=== PATIENT | female | born 1940 | race Caucasian/White ===

== ENCOUNTER 2019-01-12 13:37 | Emergency (ER) | payer MEDICARE, MEDICAID ==
[2019-01-12] MEDS ORDERED: Sodium Chloride 0.9% 10 ML Syringe FLUSH PRN (13:59)
[2019-01-12] MEDS ORDERED: Albuterol 0.083% 2.5 MG/3 ML Neb Soln NEB ONE (14:00)
[2019-01-12] MEDS ORDERED: methylPREDNISolone Sodium Succinate 125 MG/2 ML SDV IVPUSH ONE (14:00)
--- NOTE | 2019-01-12 14:04 | EDM.PDOC ---
ED HPI GENERAL MEDICAL PROBLEM - General Chief Complaint: Respiratory Problem Stated Complaint: ASTHMA ATTACK Time Seen by Provider: 01/12/19 13:52 Source of Information: Reports: Patient, RN Notes Reviewed History Limitations: Reports: No Limitations - History of Present Illness INITIAL COMMENTS - FREE TEXT/NARRATIVE: Patient is a 78-year-old female who presents to the ED for a possible asthma attack. She states that she developed sudden onset shortness of breath, with chest pressure around 30-45 minutes ago. She states that when she gets asthma attacks of this, her ears hurt, and she states that her ears to her at this time. She is complaining shortness of breath at rest, but it is definitely worse with activities. The patient states she was at the clinic all morning, for appointments, with Dr. Bauer, and she states that she had an appointment with Dr. Hein yesterday, and she was retaining water, and they started her on a water pill, she cannot recall the name but thought it was furosemide. She states that she did have a 5 pound weight gain prior to this. Patient notes a history of asthma, but she has not had PFTs for evaluation of these in a while. She denies any further cardiac history, she denies any nausea/vomiting/ diarrhea, fever/chills. She did try to take her Advair, and her albuterol inhaler, but this did not seem to help much. Patient did not take any medications for the chest pain. Middle Chest Pain Score (Numeric/FACES): 6 - Related Data Allergies Allergy/AdvReac Type Severity Reaction Status Date / Time Unable to Assess Allergy Unverified 01/12/19 13:47 Home Meds: Home Meds Albuterol [Ventolin HFA] 1 inh INH Q4HR PRN 01/12/19 [History] Aspirin 81 mg PO DAILY 01/12/19 [History] predniSONE 20 mg PO ASDIRECTED #15 tab 01/12/19 [Rx] Past Medical History HEENT History: Reports: Cataract, Impaired Vision Other HEENT History: wears glasses Cardiovascular History: Reports: Heart Failure, High Cholesterol, Hypertension Respiratory History: Reports: Asthma, Sleep Apnea Gastrointestinal History: Reports: GERD Genitourinary History: Reports: Renal Disease Other Genitourinary History: renal failure 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: Neurological History: Reports: None Psychiatric History: Reports: None Endocrine/Metabolic History: Reports: Hypothyroidism, Obesity/BMI 30+ Hematologic History: Reports: None Immunologic History: Reports: None Oncologic (Cancer) History: Reports: None Dermatologic History: Reports: None - Infectious Disease History Infectious Disease History: Reports: None - Past Surgical History Head Surgeries/Procedures: Reports: None HEENT Surgical History: Reports: Tonsillectomy Musculoskeletal Surgical History: Reports: Knee Replacement, Shoulder Surgery Social & Family History - Tobacco Use Smoking Status *Q: Never Smoker - Caffeine Use Caffeine Use: Reports: Soda - Recreational Drug Use Recreational Drug Use: No ED ROS GENERAL - Review of Systems Review Of Systems: See Below Constitutional: Denies: Fever, Chills HEENT: Reports: No Symptoms Respiratory: Reports: Shortness of Breath. Denies: Wheezing Cardiovascular: Reports: Chest Pain (chest discomfort), Edema ("retaining water on legs"). Denies: Orthopnea Endocrine: Reports: No Symptoms GI/Abdominal: Denies: Abdominal Pain, Constipation, Diarrhea, Nausea, Vomiting : Reports: No Symptoms Musculoskeletal: Reports: No Symptoms Skin: Reports: No Symptoms Neurological: Reports: No Symptoms Psychiatric: Reports: No Symptoms Hematologic/Lymphatic: Reports: No Symptoms Immunologic: Reports: No Symptoms ED EXAM, GENERAL - Physical Exam Exam: See Below Exam Limited By: No Limitations General Appearance: Alert, WD/WN, Mild Distress (very mild resp discomfort, pt is breathing heavier than normal) Eye Exam: Bilateral Eye: Normal Inspection Ears: Normal External Exam, Normal Canal, Hearing Grossly Normal, Normal TMs Throat/Mouth: Normal Inspection, Normal Lips, Normal Teeth, Normal Gums, Normal Oropharynx, Normal Voice, No Airway Compromise Head: Atraumatic Neck: Normal Inspection Respiratory/Chest: No Respiratory Distress, Lungs Clear, Normal Breath Sounds, No Accessory Muscle Use, Chest Non-Tender Cardiovascular: Normal Peripheral Pulses, Regular Rate, Rhythm, No Murmur Peripheral Pulses: 3+: Radial (L), Radial (R) GI/Abdominal: Normal Bowel Sounds, Soft, Non-Tender, No Distention, No Mass Extremities: Normal Inspection, Normal Capillary Refill Neurological: Alert, Oriented, Normal Cognition, No Motor/Sensory Deficits Psychiatric: Normal Affect, Normal Mood, Anxious (mildly, d/t difficulty breathing) Skin Exam: Warm, Dry, Intact, Normal Color, No Rash EKG INTERPRETATION EKG Date: 01/12/19 Time: 13:46 Rhythm: NSR (Sinus tach) Rate (Beats/Min): 102 [place]: Normal P-Wave: Present QRS: Normal ST-T: Normal QT: Normal Comparison: NA - No Prior EKG EKG Interpretation Comments: No acute ischemic changes, Dr. Rao appreciated some peaked T waves in V2, however patient's potassium is low at this time at 3.2. Course - Vital Signs Last Recorded V/S: Last Vital Signs Temp 96.5 F 01/12/19 13:43 Pulse 108 H 01/12/19 13:43 Resp 18 01/12/19 13:43 BP 135/79 01/12/19 13:43 Pulse Ox 97 01/12/19 14:01 - Orders/Labs/Meds Orders: Active Orders 24 hr Category Date Time Status EKG Documentation Completion [RC] STAT Care 01/12/19 14:00 Active Peripheral IV Care [RC] . DIRECTED Care 01/12/19 13:59 Active RT Aerosol Therapy [RC] ASDIRECTED Care 01/12/19 14:01 Active Sodium Chloride 0.9% [Saline Flush] Med 01/12/19 13:59 Active 10 ml FLUSH ASDIRECTED PRN Peripheral IV Insertion Adult [OM.PC] Stat Oth 01/12/19 13:59 Ordered Medication Orders Sodium Chloride (Saline Flush) 10 ml FLUSH ASDIRECTED PRN PRN Reason: Keep Vein Open Last Admin: 01/12/19 14:11 Dose: 10 ml Labs: Laboratory Tests 01/12/19 01/12/19 01/12/19 Range/Units 13:58 13:58 13:58 WBC 9.96 (3.98-10.04) K/mm3 RBC 4.12 (3.98-5.22) M/mm3 Hgb 11.8 (11.2-15.7) gm/dl Hct 36.5 (34.1-44.9) % MCV 88.6 D (79.4-94.8) fl MCH 28.6 (25.6-32.2) pg MCHC 32.3 (32.2-35.5) g/dl RDW Std Deviation 42.1 (36.4-46.3) fL Plt Count 360 (182-369) K/mm3 MPV 9.0 L (9.4-12.3) fl Neut % (Auto) 75.0 H (34.0-71.1) % Lymph % (Auto) 17.7 L (19.3-51.7) % [place] % (Auto) 7.1 (4.7-12.5) % Eos % (Auto) 0 L (0.7-5.8) Baso % (Auto) 0.1 (0.1-1.2) % Neut # (Auto) 7.47 H (1.56-6.13) K/mm3 Lymph # (Auto) 1.76 (1.18-3.74) K/mm3 [place] # (Auto) 0.71 H (0.24-0.36) K/mm3 Eos # (Auto) 0.00 L (0.04-0.36) K/mm3 Baso # (Auto) 0.01 (0.01-0.08) K/mm3 Sodium 142 (136-145) mEq/L Potassium 3.2 L (3.5-5.1) mEq/L Chloride 104 (98-107) mEq/L Carbon Dioxide 26 (21-32) mEq/L Anion Gap 15.2 H (5-15) BUN 32 H (7-18) mg/dL Creatinine 1.7 H (0.55-1.02) mg/dL Est Cr Clr Drug Dosing 25.94 mL/min Estimated GFR (MDRD) 29 (>60) mL/min BUN/Creatinine Ratio 18.8 H (14-18) Glucose 140 H (83-115) mg/dL Calcium 10.1 (8.5-10.1) mg/dL Total Bilirubin 0.4 (0.2-1.0) mg/dL AST 20 (15-37) U/L ALT 35 (14-59) U/L Alkaline Phosphatase 98 (46-116) U/L NT-Pro-B Natriuret Pep 588 H (0-450) pg/mL Total Protein 7.0 (6.4-8.2) g/dl Albumin 3.4 (3.4-5.0) g/dl Globulin 3.6 gm/dL Albumin/Globulin Ratio 0.9 L (1-2) Meds: Medications Generic Name Dose Route Start Last Admin Trade Name Freq PRN Reason Stop Dose Admin Sodium Chloride 10 ml 01/12/19 13:59 01/12/19 14:11 Saline Flush FLUSH 10 ml ASDIRECTED PRN Administration Keep Vein Open Discontinued Medications Generic Name Dose Route Start Last Admin Trade Name Jamie PRN Reason Stop Dose Admin Albuterol 2.5 mg 01/12/19 14:00 01/12/19 14:44 Proventil Neb Soln NEB 01/12/19 14:01 2.5 mg ONETIME ONE Administration Methylprednisolone Sodium Succinate 125 mg 01/12/19 14:00 01/12/19 14:18 Solu-Medrol IVPUSH 01/12/19 14:01 125 mg ONETIME ONE Administration Potassium Chloride 40 meq 01/12/19 15:40 Klor-Con M20 PO 01/12/19 15:41 ONETIME ONE - Re-Assessments/Exams Free Text/Narrative Re-Assessment/Exam: 01/12/19 14:06 Patient presents to the ED for evaluation of a possible asthma attack. Did order a chest x-ray, EKG, CBC, CMP, BNP, IV to be placed, 125 mg Solu-Medrol, and an albuterol them for initial management. 01/12/19 15:27 Patient's chest x-ray demonstrates hyperinflated lungs, a large hiatal hernia, but no other acute changes. Patient's white blood cell count is within normal limits, potassium was mildly low at 3.2, creatinine is elevated 1.7 GFR 29, BNP is also mildly elevated at 588. As stated in HPI, the patient states that she was started on furosemide yesterday, pharmacy records reveal that she was started on 20 mg of PO Furosemide daily for this. Departure - Departure Time of Disposition: 15:40 Disposition: Home, Self-Care 01 Condition: Fair Clinical Impression: Exacerbation of asthma Qualifiers: Asthma severity: mild Asthma persistence: unspecified Qualified Code(s): J45.901 - Unspecified asthma with (acute) exacerbation - Discharge Information *PRESCRIPTION DRUG MONITORING PROGRAM REVIEWED*: No *COPY OF PRESCRIPTION DRUG MONITORING REPORT IN PATIENT BARRY: No Prescriptions: predniSONE 20 mg PO ASDIRECTED #15 tab Instructions: Asthma, Adult, [id number], Pulmonary Function Tests Referrals: Izzy Hein MD [Primary Care Provider] - Forms: ED Department Discharge Additional Instructions: You were evaluated in the ER regarding your possible asthma attack. You were given a prescription for prednisone, please take as directed, this has been electronically prescribed to [facility] pharmacy located near [facility]. Please continue to use your albuterol inhaler as prescribed. You may use every 4 hours scheduled for the next few days if you're having increased breathing difficulty. Recommend that you follow up with your primary care provider, and that you talk to them about repeating nor PFTs at some point to re-evaluate your asthma. Please return to the ER at any time if your symptoms change or worsen. - My Orders Last 24 Hours: My Active Orders 01/12/19 13:59 Peripheral IV Care [RC] . DIRECTED Sodium Chloride 0.9% [Saline Flush] 10 ml FLUSH ASDIRECTED PRN Peripheral IV Insertion Adult [OM.PC] Stat 01/12/19 14:00 EKG Documentation Completion [RC] STAT 01/12/19 14:01 RT Aerosol Therapy [RC] ASDIRECTED - Assessment/Plan Last 24 Hours: My Active Orders 01/12/19 13:59 Peripheral IV Care [RC] . DIRECTED Sodium Chloride 0.9% [Saline Flush] 10 ml FLUSH ASDIRECTED PRN Peripheral IV Insertion Adult [OM.PC] Stat 01/12/19 14:00 EKG Documentation Completion [RC] STAT 01/12/19 14:01 RT Aerosol Therapy [RC] ASDIRECTED
--- NOTE | 2019-01-12 14:57 | CR ---
Chest: Two views of the chest were obtained. Comparison: No prior chest x-ray is available. Heart size is normal. Tortuous thoracic aorta is seen. Large hiatal hernia is present. Lungs are clear with no acute parenchymal change. Diaphragms are slightly flattened on the lateral view. Bony structures are osteopenic. Minimal scoliosis is noted. Impression: 1. Lungs are hyperinflated. 2. Large hiatal hernia. 3. Nothing acute is otherwise seen. Diagnostic code #2
[2019-01-12] MEDS ORDERED: Potassium Chloride 20 MEQ Tab.ER PO ONE (15:40)
== END 2019-01-12 16:08 | disposition home or self-care (01) ==
LOC: JD.ED 13:37
DX: J45.901 Unspecified asthma with (acute) exacerbation (principal); E66.9 Obesity, unspecified; I11.0 Hypertensive heart disease with heart failure; I50.9 Heart failure, unspecified; Z68.32 Body mass index [BMI] 32.0-32.9, adult; Z79.82 Long term (current) use of aspirin; Z79.52 Long term (current) use of systemic steroids
CPT/HCPCS: 36415; 71046; 80053; 83880; 85025; 93005; 94640; 96374; 99285; A9270; J2930; 93010; 99284

== ENCOUNTER 2019-01-31 22:02 | Emergency (ER) | payer MEDICARE, MEDICAID ==
--- NOTE | 2019-01-31 22:27 | EDM.PDOC ---
ED HPI GENERAL MEDICAL PROBLEM - General Chief Complaint: Chest Pain Stated Complaint: CHEST PAIN/SWEATING Time Seen by Provider: 01/31/19 22:11 Source of Information: Reports: Patient, Family (Daughter) History Limitations: Reports: No Limitations - History of Present Illness INITIAL COMMENTS - FREE TEXT/NARRATIVE: Ms. Mcneal is a pleasant 78-year-old woman with a past medical history negative. For possible asthma. She states that she has undergone pulmonary function tests in the past, but it was many years ago, and she does not recall what the results were. She is prescribed Advair, which she takes only on occasion, and albuterol by MDI. She has a space chamber at home, but does not use it. She now presents to the ED stating that she developed an asthma attack, midsternal chest pain, diaphoresis, and nausea around 20:30 this evening. She states that when she gets an asthma attack, she does not get dyspneic or wheezy , but, rather, her ears hurt. Such was the case [place]. She states that her central chest became heavy, and it hurt for her to breathe. She states that she felt a pressure in her central chest, that was painful, not a discomfort. It came on suddenly. It does not radiate, and she has not identified any modifiers. She states that she has been feeling anxious. She denies, specifically, shortness of breath. The patient states that she has had a similar constellation of symptoms 2 or 3 times over the past 5-6 months, but, for reasons unclear, she has not sought medical evaluation for them. It is unclear why tonight was any different. The patient states that she used her albuterol MDI, without a space chamber, 5 or 6 times, as well as 2 doses of Advair, prior to coming to the ED. She states that none of these treatments helped with her symptoms. The patient denies recent fever or chills, cough, dyspnea, palpitations, vomiting, constipation, diarrhea, abdominal pain, urinary symptoms, recent weight gain or weight loss, recent bloody bowel movements or black bowel movements, joint aches, headaches, or rashes. The patient's PCP is Dr. Izzy Hein. Her Dividend Deposit Entry Clerk is Dr. Primo Grant. Her Orthopedic Surgeon is Dr. Scottie Bauer. Her pain specialist is Dr. Nabil Chris. Mid-Sternal Chest Pain Score (Numeric/FACES): 5 - Related Data Allergies Allergy/AdvReac Type Severity Reaction Status Date / Time No Known Allergies Allergy Verified 01/31/19 22:04 Home Meds: Home Meds Albuterol [Ventolin HFA] 1 inh INH Q4HR PRN 01/12/19 [History] Aspirin 81 mg PO DAILY 01/12/19 [History] Escitalopram [Lexapro] 10 mg PO DAILY 01/31/19 [History] Ezetimibe 10 mg PO BEDTIME 01/31/19 [History] Fluticasone Propion/Salmeterol [Fluticasone-Salmeterol 100-50] 1 puff INH ASDIRECTED 01/31/19 [History] Furosemide 20 mg PO DAILY 01/31/19 [History] Levothyroxine 75 mcg PO ACBREAKFAST 01/31/19 [History] atorvaSTATin [Lipitor] 20 mg PO DAILY 01/31/19 [History] traZODone HCl [Trazodone HCl] 50 mg PO BEDTIME 01/31/19 [History] Past Medical History HEENT History: Reports: Impaired Vision Other HEENT History: wears glasses Cardiovascular History: Reports: High Cholesterol Respiratory History: Reports: Asthma (possible) Gastrointestinal History: Reports: GERD, Hiatal Hernia Genitourinary History: Reports: Chronic Renal Insuffiency 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: Psychiatric History: Reports: Anxiety, Depression Endocrine/Metabolic History: Reports: Hypothyroidism, Obesity/BMI 30+ - Past Surgical History HEENT Surgical History: Reports: Cataract Surgery (bilateral), Tonsillectomy Musculoskeletal Surgical History: Reports: Knee Replacement (bilateral), Shoulder Surgery (right, open) Social & Family History - Tobacco Use Smoking Status *Q: Never Smoker - Caffeine Use Caffeine Use: Reports: Soda - Alcohol Use Alcohol Use History: No - Recreational Drug Use Recreational Drug Use: No - Living Situation & Occupation Living situation: Reports: , with Family (Daughter) Occupation: Retired ED ROS GENERAL - Review of Systems Review Of Systems: Comprehensive ROS is negative, except as noted in HPI. ED EXAM, GENERAL - Physical Exam Exam: See Below Exam Limited By: No Limitations General Appearance: Alert, WD/WN, Anxious Eye Exam: Bilateral Eye: EOMI, Normal Inspection Ears: Normal External Exam, Hearing Grossly Normal Nose: Normal Inspection Throat/Mouth: Normal Inspection, Normal Lips, Normal Voice, No Airway Compromise Head: Atraumatic, Normocephalic Neck: Normal Inspection, Full Range of Motion Respiratory/Chest: No Respiratory Distress, Lungs Clear, Normal Breath Sounds, No Accessory Muscle Use, Other (There is tenderness to palpation of the patient' s chest, however, she states that it is not the same pain as that that brings her to the ED). No: Decreased Breath Sounds, Crackles, Rhonchi, Wheezing, Stridor, Prolonged Expiration Cardiovascular: Normal Peripheral Pulses, Regular Rate, Rhythm, No Edema, No Gallop, No JVD, No Murmur, No Rub Peripheral Pulses: 4+: Radial (L), Radial (R) GI/Abdominal: Normal Bowel Sounds, Soft, Non-Tender, No Organomegaly, No Distention, No Abnormal Bruit, No Mass (Female) Exam: Deferred Rectal (Female) Exam: Deferred Back Exam: Normal Inspection, Full Range of Motion, NT Extremities: Normal Inspection, Normal Range of Motion, No Pedal Edema, Normal Capillary Refill Neurological: Alert, Oriented, Normal Cognition, No Motor/Sensory Deficits Psychiatric: Normal Affect Skin Exam: Warm, Dry, Intact, Normal Color, No Rash EKG INTERPRETATION EKG Date: 01/31/19 Time: 22:22 Rhythm: NSR Rate (Beats/Min): 96 [place]: Normal P-Wave: Enlarged (LAE) QRS: Normal ST-T: Normal QT: Normal Comparison: No Change (01/12/2019) Course - Vital Signs Last Recorded V/S: Last Vital Signs Temp 35.7 C 01/31/19 22:07 Pulse 100 01/31/19 22:07 Resp 13 01/31/19 22:07 BP 123/77 01/31/19 22:07 Pulse Ox 97 01/31/19 22:07 - Orders/Labs/Meds Orders: Active Orders 24 hr Category Date Time Status EKG 12 Lead [EKG Documentation Completion] [RC] STAT Care 01/31/19 22:17 Active Ang Chest [CT] Stat Exams 01/31/19 22:59 Taken Chest 2V [CR] Stat Exams 01/31/19 22:25 Taken Labs: Laboratory Tests 01/31/19 01/31/19 01/31/19 Range/Units 22:11 22:11 22:11 WBC 7.53 (3.98-10.04) K/mm3 RBC 4.35 (3.98-5.22) M/mm3 Hgb 12.7 (11.2-15.7) gm/dl Hct 39.1 (34.1-44.9) % MCV 89.9 (79.4-94.8) fl MCH 29.2 (25.6-32.2) pg MCHC 32.5 (32.2-35.5) g/dl RDW Std Deviation 44.3 (36.4-46.3) fL Plt Count 262 D (182-369) K/mm3 MPV 9.4 (9.4-12.3) fl Neut % (Auto) 48.7 (34.0-71.1) % Lymph % (Auto) 38.2 (19.3-51.7) % [place] % (Auto) 11.3 (4.7-12.5) % Eos % (Auto) 1.2 (0.7-5.8) Baso % (Auto) 0.5 (0.1-1.2) % Neut # (Auto) 3.66 (1.56-6.13) K/mm3 Lymph # (Auto) 2.88 (1.18-3.74) K/mm3 [place] # (Auto) 0.85 H (0.24-0.36) K/mm3 Eos # (Auto) 0.09 (0.04-0.36) K/mm3 Baso # (Auto) 0.04 (0.01-0.08) K/mm3 D-Dimer, Quantitative 3.91 H (0.19-0.50) mg/L Sodium 146 H (136-145) mEq/L Potassium 3.4 L (3.5-5.1) mEq/L Chloride 108 H (98-107) mEq/L Carbon Dioxide 26 (21-32) mEq/L Anion Gap 15.4 H (5-15) BUN 31 H (7-18) mg/dL Creatinine 2.1 H (0.55-1.02) mg/dL Est Cr Clr Drug Dosing 21.00 mL/min Estimated GFR (MDRD) 23 (>60) mL/min BUN/Creatinine Ratio 14.8 (14-18) Glucose 138 H (83-115) mg/dL Calcium 9.7 (8.5-10.1) mg/dL Total Bilirubin 0.4 (0.2-1.0) mg/dL AST 17 (15-37) U/L ALT 22 (14-59) U/L Alkaline Phosphatase 91 (46-116) U/L Troponin I < 0.017 (0.00-0.056) ng/mL Total Protein 7.1 (6.4-8.2) g/dl Albumin 3.6 (3.4-5.0) g/dl Globulin 3.5 gm/dL Albumin/Globulin Ratio 1.0 (1-2) 02/01/19 Range/Units 00:30 WBC (3.98-10.04) K/mm3 RBC (3.98-5.22) M/mm3 Hgb (11.2-15.7) gm/dl Hct (34.1-44.9) % MCV (79.4-94.8) fl MCH (25.6-32.2) pg MCHC (32.2-35.5) g/dl RDW Std Deviation (36.4-46.3) fL Plt Count (182-369) K/mm3 MPV (9.4-12.3) fl Neut % (Auto) (34.0-71.1) % Lymph % (Auto) (19.3-51.7) % [place] % (Auto) (4.7-12.5) % Eos % (Auto) (0.7-5.8) Baso % (Auto) (0.1-1.2) % Neut # (Auto) (1.56-6.13) K/mm3 Lymph # (Auto) (1.18-3.74) K/mm3 [place] # (Auto) (0.24-0.36) K/mm3 Eos # (Auto) (0.04-0.36) K/mm3 Baso # (Auto) (0.01-0.08) K/mm3 D-Dimer, Quantitative (0.19-0.50) mg/L Sodium (136-145) mEq/L Potassium (3.5-5.1) mEq/L Chloride (98-107) mEq/L Carbon Dioxide (21-32) mEq/L Anion Gap (5-15) BUN (7-18) mg/dL Creatinine (0.55-1.02) mg/dL Est Cr Clr Drug Dosing mL/min Estimated GFR (MDRD) (>60) mL/min BUN/Creatinine Ratio (14-18) Glucose (83-115) mg/dL Calcium (8.5-10.1) mg/dL Total Bilirubin (0.2-1.0) mg/dL AST (15-37) U/L ALT (14-59) U/L Alkaline Phosphatase (46-116) U/L Troponin I 0.054 (0.00-0.056) ng/mL Total Protein (6.4-8.2) g/dl Albumin (3.4-5.0) g/dl Globulin gm/dL Albumin/Globulin Ratio (1-2) Meds: Medications Discontinued Medications Generic Name Dose Route Start Last Admin Trade Name Freq PRN Reason Stop Dose Admin Sodium Chloride 1,000 mls @ 150 mls/hr 01/31/19 23:00 01/31/19 23:05 Normal Saline IV 150 mls/hr ASDIRECTED [facility] Administration - Re-Assessments/Exams Free Text/Narrative Re-Assessment/Exam: 01/31/19 22:26 Clearly, the patient is not suffering from an asthma exacerbation, as she claims. Her lungs are entirely clear with no prolonged expiratory phase. Her retrosternal chest discomfort could be cardiac; I have ordered a workup that includes an ECG, a chest x-ray, and blood work. 01/31/19 23:00 2-view chest radiograph reviewed. The cardiac silhouette is within normal limits. No pulmonary vascular congestion. No pleural effusions. No focal infiltrate. No pneumothorax. A large hiatal hernia is incidentally noted. There is no hyperinflation, but there is diaphragmatic flattening noted on the lateral view. Mild thoracolumbar scoliosis incidentally noted. Formal read per the Radiologist pending. The patient's CBC is unremarkable. Her CMP is remarkable for a sodium slightly elevated at 146, potassium slightly depressed at 3.4. Her BUN/Cr are elevated at 31/2.1. Her blood glucose is mildly elevated at 138. The remainder of her CMP is unremarkable. Her troponin is undetectably low. Her D-dimer is substantially elevated at 3.91. The patient's BUN/Cr were 32/1.7 on 01/12/2019. It is unclear if the patient's elevated D-dimer is due to her chronic renal insufficiency or, possibly, due to a PE. I have therefore ordered a CT angiogram of the chest to evaluate for a PE. The patient will be given IV fluid. 02/01/19 00:03 CT angiogram of the chest is read by [facility] as "Large hiatal hernia. No acute findings." 02/01/19 00:09 Test results thus far discussed with the patient (her daughter is no longer present). As above, the patient's workup is unremarkable. The patient agreed, however, to have us draw a second troponin at 00:30, in order to confirm no cardiac damage. 02/01/19 02:32 Test results discussed with the patient and her daughter, who is now present again. The patient's repeat troponin is within normal limits at 0.054, however, I am very concerned about that, because her initial troponin was undetectably low. I am suspicious that her event was cardiac related, and therefore recommended that we place her into observation for a cardiac stress test. The patient adamantly refused, stating that she would prefer to go home and follow up with a Bounty Hunter in [place]. She does not at present have a Bounty Hunter , but said that she will find one. Departure - Departure Time of Disposition: 02:39 Disposition: Home, Self-Care 01 Condition: Fair Clinical Impression: Cardiac chest pain - Discharge Information *PRESCRIPTION DRUG MONITORING PROGRAM REVIEWED*: Not Applicable *COPY OF PRESCRIPTION DRUG MONITORING REPORT IN PATIENT BARRY: Not Applicable Referrals: Izzy Hein MD [Primary Care Provider] - Forms: ED Department Discharge Additional Instructions: You were seen in the emergency room for sudden onset chest heaviness with painful breathing and sweatiness. Workup in the ER included blood work, a chest x-ray, a CT angiogram of your chest, and an ECG. Your initial heart enzyme was undetectably low, and while your second heart enzyme was still within normal limits, it aishwarya considerably from your initial heart enzyme, raising the concern that your event was cardiac related. Placement into observation was recommended, but declined. We strongly recommend that you follow-up with a Bounty Hunter in [place] at the earliest available appointment. In the meantime, we recommend that you continue to take your current medications as prescribed. If any other problems, including if you change your mind and would like to be placed into observation, please do not hesitate to return to the ER. - My Orders Last 24 Hours: My Active Orders 01/31/19 22:17 EKG 12 Lead [EKG Documentation Completion] [RC] STAT 01/31/19 22:25 Chest 2V [CR] Stat 01/31/19 22:59 Ang Chest [CT] Stat - Assessment/Plan Last 24 Hours: My Active Orders 01/31/19 22:17 EKG 12 Lead [EKG Documentation Completion] [RC] STAT 01/31/19 22:25 Chest 2V [CR] Stat 01/31/19 22:59 Ang Chest [CT] Stat
[2019-01-31] MEDS ORDERED: Sodium Chloride 0.9% 1,000 ML IV SCH (23:00)
--- NOTE | 2019-02-01 07:06 | CR ---
Chest: Two views of the chest were obtained. Comparison: Prior chest x-ray of 01/12/19. Hiatal hernia is seen. Heart size and mediastinum are normal. Lungs are clear with no acute parenchymal change. Bony structures are slightly osteopenic. Mild degenerative change is scattered within the spine with mild scoliosis. Impression: 1. Findings as noted above. 2. Nothing acute is seen. Diagnostic code #2
--- NOTE | 2019-02-01 09:14 | CT ---
CT chest Technique: Multiple axial sections were obtained from above the lung apices inferiorly through the lung bases. Intravenous contrast was utilized. Study performed as a pulmonary angiogram protocol. Comparison: Prior chest x-ray performed earlier on the same day. Findings: Pulmonary arteries are not optimally opacified. No filling defects are seen within the main or segmental branches to indicate pulmonary emboli. Proximal subsegmental arteries show no pulmonary emboli. Smaller distal subsegmental pulmonary emboli could be missed. Mediastinum and hilar region show no adenopathy. Moderate coronary artery calcification is seen. No pericardial thickening is seen. Large hiatal hernia is noted. No axillary adenopathy is seen. No pleural effusions are noted. No acute parenchymal change is seen. Bone window settings were reviewed which show scattered degenerative change within the spine. No acute osseous abnormality is seen. Impression: 1. Slightly less than optimal pulmonary artery opacification. No findings of pulmonary embolism within the main, segmental or proximal subsegmental pulmonary arteries. Smaller distal subsegmental pulmonary emboli could be missed. 2. Large hiatal hernia. Coronary artery calcification. 3. Nothing acute is otherwise seen on CT study of the chest. Diagnostic code #2 I agree with preliminary report from [facility], finalized on 02/01/19, 1:01 AM Central Time
== END 2019-02-01 03:55 | disposition home or self-care (01) ==
LOC: JD.ED 22:02
DX: R07.9 Chest pain, unspecified (principal); J45.909 Unspecified asthma, uncomplicated; E78.00 Pure hypercholesterolemia, unspecified; E03.9 Hypothyroidism, unspecified; F32.9 Major depressive disorder, single episode, unspecified; F41.9 Anxiety disorder, unspecified; N18.9 Chronic kidney disease, unspecified; E78.1 Pure hyperglyceridemia; E87.6 Hypokalemia; R79.89 Other specified abnormal findings of blood chemistry; R73.9 Hyperglycemia, unspecified; R79.1 Abnormal coagulation profile; M41.9 Scoliosis, unspecified; K44.9 Diaphragmatic hernia without obstruction or gangrene; Z79.82 Long term (current) use of aspirin; Z79.890 Hormone replacement therapy; Z79.899 Other long term (current) drug therapy
CPT/HCPCS: 36415; 71046; 71275; 80053; 84484; 85025; 85379; 93005; 99285; J7040; 93010; 99284; J7030

== ENCOUNTER 2019-06-12 18:34 | Emergency (ER) | payer MEDICARE, MEDICAID ==
[2019-06-12] MEDS ORDERED: Aspirin 81 MG Tab.Chew PO ONE (18:59)
--- NOTE | 2019-06-12 18:59 | EDM.PDOC ---
ED HPI GENERAL MEDICAL PROBLEM - General Chief Complaint: Chest Pain Stated Complaint: MILD CHEST PAINS SINCE 1PM Time Seen by Provider: 06/12/19 18:52 Source of Information: Reports: Patient History Limitations: Reports: No Limitations - History of Present Illness INITIAL COMMENTS - FREE TEXT/NARRATIVE: Patient is a 78-year-old female who presents to the emergency department with complaints of intermittent left-sided chest pain that started around 1:00 this afternoon. Pain was not present at the time of exam. She described the pain as a dull ache. At its worst she rated at 3 out of 10. She did take 2 nitro earlier in the day which she states did improve the symptoms. She denies any shortness of breath or diaphoresis at the time the symptoms were occurring. She did not have any nausea or vomiting with the symptoms. Symptoms do not seem to worsen with breathing or palpation. She does have a cardiac history significant for high cholesterol and "a mild heart attack in March ". - Related Data Allergies Allergy/AdvReac Type Severity Reaction Status Date / Time No Known Allergies Allergy Verified 06/12/19 18:49 Home Meds: Home Meds Albuterol [Ventolin HFA] 1 inh INH Q4HR PRN 01/12/19 [History] Aspirin 81 mg PO DAILY 01/12/19 [History] Escitalopram [Lexapro] 10 mg PO DAILY 01/31/19 [History] Ezetimibe 10 mg PO BEDTIME 01/31/19 [History] Fluticasone Propion/Salmeterol [Fluticasone-Salmeterol 100-50] 1 puff INH ASDIRECTED 01/31/19 [History] Furosemide 20 mg PO DAILY 01/31/19 [History] Levothyroxine 75 mcg PO ACBREAKFAST 01/31/19 [History] atorvaSTATin [Lipitor] 20 mg PO DAILY 01/31/19 [History] traZODone HCl [Trazodone HCl] 50 mg PO BEDTIME 01/31/19 [History] Ascorbic Acid [Vitamin C] 1 tab PO DAILY 06/12/19 [History] Calcium Carbonate [Calcium] 1 tab PO DAILY 06/12/19 [History] Cholecalciferol (Vitamin D3) [Vitamin D] 5,000 unit PO DAILY 06/12/19 [History] Fluticasone/Salmeterol [Advair 250-50 Diskus] 2 puff INH DAILY 06/12/19 [History ] Past Medical History HEENT History: Reports: Impaired Vision Other HEENT History: wears glasses Cardiovascular History: Reports: High Cholesterol Respiratory History: Reports: Asthma (possible) Gastrointestinal History: Reports: GERD, Hiatal Hernia Genitourinary History: Reports: Chronic Renal Insuffiency Other Genitourinary History: renal 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: Neurological History: Reports: None Psychiatric History: Reports: Anxiety, Depression Endocrine/Metabolic History: Reports: Hypothyroidism, Obesity/BMI 30+ Hematologic History: Reports: None Immunologic History: Reports: None Oncologic (Cancer) History: Reports: None Dermatologic History: Reports: None - Infectious Disease History Infectious Disease History: Reports: None - Past Surgical History HEENT Surgical History: Reports: Cataract Surgery (bilateral), Tonsillectomy Musculoskeletal Surgical History: Reports: Knee Replacement (bilateral), Shoulder Surgery (right, open) Social & Family History - Caffeine Use Caffeine Use: Reports: Soda - Living Situation & Occupation Living situation: Reports: , with Family (Daughter) Occupation: Retired ED ROS GENERAL - Review of Systems Review Of Systems: See Below Constitutional: Reports: No Symptoms. Denies: Fever, Chills, Weakness HEENT: Reports: No Symptoms Respiratory: Reports: No Symptoms. Denies: Shortness of Breath, Pleuritic Chest Pain, Cough Cardiovascular: Reports: Chest Pain. Denies: Dyspnea on Exertion, Edema, Lightheadedness, Palpitations, Syncope Endocrine: Reports: No Symptoms GI/Abdominal: Reports: No Symptoms. Denies: Nausea, Vomiting : Reports: No Symptoms Musculoskeletal: Reports: No Symptoms Skin: Reports: No Symptoms Neurological: Reports: No Symptoms. Denies: Dizziness, Headache Psychiatric: Reports: No Symptoms Hematologic/Lymphatic: Reports: No Symptoms Immunologic: Reports: No Symptoms ED EXAM, GENERAL - Physical Exam Exam: See Below Exam Limited By: No Limitations General Appearance: Alert, WD/WN, No Apparent Distress Respiratory/Chest: No Respiratory Distress, Lungs Clear, Normal Breath Sounds, No Accessory Muscle Use, Chest Non-Tender Cardiovascular: Normal Peripheral Pulses, Regular Rate, Rhythm, No Edema, No Gallop, No JVD, No Murmur, No Rub GI/Abdominal: Normal Bowel Sounds, Soft, Non-Tender, No Organomegaly, No Distention, No Abnormal Bruit, No Mass Extremities: Normal Inspection, Normal Range of Motion, Non-Tender, Normal Capillary Refill, No Pedal Edema Neurological: Alert, Oriented, CN II-XII Intact, Normal Cognition, Normal Gait, Normal Reflexes, No Motor/Sensory Deficits Psychiatric: Normal Affect, Normal Mood Skin Exam: Warm, Dry, Intact, Normal Color, No Rash EKG INTERPRETATION EKG Date: 06/12/19 Time: 18:39 Rhythm: NSR Rate (Beats/Min): 73 Jesse: Normal P-Wave: Present QRS: Normal ST-T: Normal QT: Normal EKG Interpretation Comments: EKG interpreted by Dr. Anibal Rao MD. Course - Vital Signs Last Recorded V/S: Last Vital Signs Temp 97.4 F 06/12/19 18:41 Pulse 74 06/12/19 18:41 Resp 18 06/12/19 18:41 BP 127/68 06/12/19 18:41 Pulse Ox 96 06/12/19 18:41 - Orders/Labs/Meds Orders: Active Orders 24 hr Category Date Time Status EKG 12 Lead [EKG Documentation Completion] [RC] STAT Care 06/12/19 18:53 Active EKG Documentation Completion [RC] STAT Care 06/12/19 18:52 Inactive Labs: Laboratory Tests 06/12/19 06/12/19 06/12/19 Range/Units 18:45 18:45 18:45 WBC 5.45 (3.98-10.04) K/mm3 RBC 4.05 (3.98-5.22) M/mm3 Hgb 11.4 (11.2-15.7) gm/dl Hct 35.9 (34.1-44.9) % MCV 88.6 (79.4-94.8) fl MCH 28.1 (25.6-32.2) pg MCHC 31.8 L (32.2-35.5) g/dl RDW Std Deviation 41.6 (36.4-46.3) fL Plt Count 283 (182-369) K/mm3 MPV 9.6 (9.4-12.3) fl Neutrophils % (Manual) 48 (40-60) % Band Neutrophils % 0 (0-10) % Lymphocytes % (Manual) 44 H (20-40) % Atypical Lymphs % 0 % Monocytes % (Manual) 6 (2-10) % Eosinophils % (Manual) 2 (0.7-5.8) % Basophils % (Manual) 0 L (0.1-1.2) Platelet Estimate Adequate Plt Morphology Comment Normal RBC Morph Comment Normal PT 10.3 (9.7-12.0) SECONDS INR 0.94 APTT 25 (22-31) SECONDS Sodium 143 (136-145) mEq/L Potassium 4.4 (3.5-5.1) mEq/L Chloride 106 (98-107) mEq/L Carbon Dioxide 26 (21-32) mEq/L Anion Gap 15.4 H (5-15) BUN 23 H (7-18) mg/dL Creatinine 1.9 H (0.55-1.02) mg/dL Est Cr Clr Drug Dosing 21.41 mL/min Estimated GFR (MDRD) 26 (>60) mL/min BUN/Creatinine Ratio 12.1 L (14-18) Glucose 102 (83-115) mg/dL Calcium 9.6 (8.5-10.1) mg/dL Magnesium 1.3 L (1.8-2.4) mg/dl Total Bilirubin 0.3 (0.2-1.0) mg/dL AST 16 (15-37) U/L ALT 20 (14-59) U/L Alkaline Phosphatase 128 H (46-116) U/L Troponin I < 0.017 (0.00-0.056) ng/mL NT-Pro-B Natriuret Pep (0-450) pg/mL Total Protein 6.8 (6.4-8.2) g/dl Albumin 3.5 (3.4-5.0) g/dl Globulin 3.3 gm/dL Albumin/Globulin Ratio 1.1 (1-2) /07/26 Range/Units 18:45 WBC (3.98-10.04) K/mm3 RBC (3.98-5.22) M/mm3 Hgb (11.2-15.7) gm/dl Hct (34.1-44.9) % MCV (79.4-94.8) fl MCH (25.6-32.2) pg MCHC (32.2-35.5) g/dl RDW Std Deviation (36.4-46.3) fL Plt Count (182-369) K/mm3 MPV (9.4-12.3) fl Neutrophils % (Manual) (40-60) % Band Neutrophils % (0-10) % Lymphocytes % (Manual) (20-40) % Atypical Lymphs % % Monocytes % (Manual) (2-10) % Eosinophils % (Manual) (0.7-5.8) % Basophils % (Manual) (0.1-1.2) Platelet Estimate Plt Morphology Comment RBC Morph Comment PT (9.7-12.0) SECONDS INR APTT (22-31) SECONDS Sodium (136-145) mEq/L Potassium (3.5-5.1) mEq/L Chloride (98-107) mEq/L Carbon Dioxide (21-32) mEq/L Anion Gap (5-15) BUN (7-18) mg/dL Creatinine (0.55-1.02) mg/dL Est Cr Clr Drug Dosing mL/min Estimated GFR (MDRD) (>60) mL/min BUN/Creatinine Ratio (14-18) Glucose (83-115) mg/dL Calcium (8.5-10.1) mg/dL Magnesium (1.8-2.4) mg/dl Total Bilirubin (0.2-1.0) mg/dL AST (15-37) U/L ALT (14-59) U/L Alkaline Phosphatase (46-116) U/L Troponin I (0.00-0.056) ng/mL NT-Pro-B Natriuret Pep 160 (0-450) pg/mL Total Protein (6.4-8.2) g/dl Albumin (3.4-5.0) g/dl Globulin gm/dL Albumin/Globulin Ratio (1-2) Meds: Medications Discontinued Medications Generic Name Dose Route Start Last Admin Trade Name Freq PRN Reason Stop Dose Admin Aspirin 324 mg 06/12/19 18:59 06/12/19 19:10 Aspirin PO 06/12/19 19:00 324 mg ONETIME ONE Administration Magnesium Oxide 400 mg 06/12/19 19:54 06/12/19 20:16 Magnesium Oxide PO 06/12/19 19:55 400 mg ONETIME ONE Administration - Re-Assessments/Exams Free Text/Narrative Re-Assessment/Exam: 06/12/192014 Otology was significant for an anion gap mildly elevated at 15.4. BUN 23, creatinine 1.9. Magnesium is low at 1.3. Troponin was negative, and BNP was found to be normal. Looking back on patient's previous visits, she has had chronic renal insufficiency. EKG was negative for any acute changes. On reexam , patient has had no further chest pain, however she does note that she does have some tenderness over the ribs below her left breast. Discussed with her the her chest pain is likely muscular in nature. I did recommend that she start taking a daily magnesium supplement and follow-up with her primary care provider to have her magnesium levels rechecked in a couple weeks. Discharge instructions as documented. Departure - Departure Time of Disposition: 20:07 Disposition: Home, Self-Care 01 Condition: Fair Clinical Impression: Nonspecific chest pain Instructions: Nonspecific Chest Pain, Adult, [id number] Referrals: Izzy Hein MD [Primary Care Provider] - Forms: ED Department Discharge Additional Instructions: You were seen in the emergency department today for intermittent, mild chest pain throughout the day. Your work-up included blood work, an EKG of your heart , and a chest x-ray. The results of this were found to be normal with the exception of a low magnesium level. You did receive a dose of magnesium in the emergency department. I would recommend that you start taking a daily magnesium supplement. Your cardiac enzymes and your EKG were found to be normal , indicating that you did not have a heart attack. Recommend that you continue to monitor your symptoms. If you should experience any new or worsening symptoms of concern, please not hesitate to return to the emergency department. You may call to schedule an ER follow-up with your primary care provider for sometime later this week. Sepsis Event Note - Evaluation Sepsis Screening Result: No Definite Risk - Focused Exam Vital Signs: Vital Signs Temp Pulse Resp BP Pulse Ox 06/12/19 18:41 97.4 F 74 18 127/68 96 Date Exam was Performed: 06/12/19 Time Exam was Performed: 21:06 - My Orders Last 24 Hours: My Active Orders 06/12/19 18:52 EKG Documentation Completion [RC] STAT 06/12/19 18:53 EKG 12 Lead [EKG Documentation Completion] [RC] STAT - Assessment/Plan Last 24 Hours: My Active Orders 06/12/19 18:52 EKG Documentation Completion [RC] STAT 06/12/19 18:53 EKG 12 Lead [EKG Documentation Completion] [RC] STAT
[2019-06-12] MEDS ORDERED: Magnesium Oxide 400 MG Tab PO ONE (19:54)
--- NOTE | 2019-06-12 20:31 | CR ---
Chest: 2 views of the chest were obtained. Comparison: Prior chest x-ray of 01/31/19. Heart size is normal. Moderately large hiatal hernia seen. Lungs show no acute parenchymal change. Bony structures are osteopenic. Prior right shoulder surgery is noted. Slight scoliosis is noted within the spine with mild degenerative change. Impression: 1. Findings as noted above. 2. Nothing acute is appreciated. Diagnostic code #2 This report was dictated in MDT
== END 2019-06-12 20:18 | disposition home or self-care (01) ==
LOC: JD.ED 18:34
DX: R07.9 Chest pain, unspecified (principal); J45.909 Unspecified asthma, uncomplicated; N18.9 Chronic kidney disease, unspecified; F41.9 Anxiety disorder, unspecified; F32.9 Major depressive disorder, single episode, unspecified; E03.9 Hypothyroidism, unspecified; E66.9 Obesity, unspecified; Z68.30 Body mass index [BMI] 30.0-30.9, adult; Z79.82 Long term (current) use of aspirin; Z79.899 Other long term (current) drug therapy
CPT/HCPCS: 36415; 71046; 80053; 83735; 83880; 84484; 85007; 85027; 85610; 85730; 93005; 99285; A9270; 93010; 99284

== ENCOUNTER 2019-08-25 23:46 | Emergency (ER) | payer MEDICARE, MEDICAID ==
[2019-08-26] MEDS ORDERED: traMADol 50 MG Tab PO ONE (00:09)
--- NOTE | 2019-08-26 00:16 | EDM.PDOC ---
ED HPI GENERAL MEDICAL PROBLEM - General Chief Complaint: Lower Extremity Injury/Pain Stated Complaint: TWISTED LEFT ANKLE Time Seen by Provider: 08/25/19 23:58 Source of Information: Reports: Patient History Limitations: Reports: No Limitations - History of Present Illness INITIAL COMMENTS - FREE TEXT/NARRATIVE: Mrs. Mcneal is a very pleasant 78-year-old woman who presents to the ED with left ankle pain. She states that she stepped in a hole while mowing her lawn around 17:00 last evening. twisting her ankle. She states that initially she had no pain, but that she has since developed pain, primarily to the lateral malleolus, but also circumferentially around her ankle, made worse with both weightbearing and range of motion. She states that the pain radiates down to her heel and to her midfoot. She Kendrick wrapped her ankle prior to coming to the ED. She states that she took 2 tablets of Tylenol around 22:00. She is otherwise uninjured. She denies a prior left ankle injury. Here in the ED, the patient is found to be hemodynamically stable, afebrile, saturating 99% on room air. Other than her left ankle injury, the patient denies recent fever, chills, sore throat, ear pain, nasal or sinus congestion, cough, dyspnea, chest pain, palpitations, nausea, vomiting, constipation, diarrhea, abdominal pain, urinary symptoms, recent weight gain or weight loss, recent bloody bowel movements or black bowel movements, recent joint aches, headaches, or rashes. The patient's PCP is Dr. Izzy Hein. Her Orthopedic Surgeon is Dr. Scottie Bauer. Her Pain Specialist is Dr. Nabil Carroll, in [place]. Her [place] is Dr. Primo Grant. 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 Left Ankle Pain Score (Numeric/FACES): 8 - Related Data Allergies Allergy/AdvReac Type Severity Reaction Status Date / Time No Known Allergies Allergy Verified 08/26/19 00:01 Home Meds: Home Meds Albuterol [Ventolin HFA] 1 inh INH Q4HR PRN 01/12/19 [History] Aspirin 81 mg PO DAILY 01/12/19 [History] Escitalopram [Lexapro] 10 mg PO DAILY 01/31/19 [History] Ezetimibe 10 mg PO BEDTIME 01/31/19 [History] Fluticasone Propion/Salmeterol [Fluticasone-Salmeterol 100-50] 1 puff INH ASDIRECTED 01/31/19 [History] Furosemide 20 mg PO DAILY 01/31/19 [History] Levothyroxine 75 mcg PO ACBREAKFAST 01/31/19 [History] atorvaSTATin [Lipitor] 20 mg PO DAILY 01/31/19 [History] traZODone HCl [Trazodone HCl] 50 mg PO BEDTIME 01/31/19 [History] Ascorbic Acid [Vitamin C] 1 tab PO DAILY 06/12/19 [History] Calcium Carbonate [Calcium] 1 tab PO DAILY 06/12/19 [History] Cholecalciferol (Vitamin D3) [Vitamin D] 5,000 unit PO DAILY 06/12/19 [History] Fluticasone Propion/Salmeterol [Advair 250-50 Diskus] 2 puff INH DAILY 06/12/19 [History] traMADol [Ultram] 1 tab PO Q6H PRN #10 tab 08/26/19 [Rx] Past Medical History HEENT History: Reports: Impaired Vision (wears glasses) Cardiovascular History: Reports: High Cholesterol Respiratory History: Reports: Asthma (possible) Gastrointestinal History: Reports: GERD, Hiatal Hernia Genitourinary History: Reports: Chronic Renal Insuffiency Psychiatric History: Reports: Anxiety, Depression Endocrine/Metabolic History: Reports: Hypothyroidism - Past Surgical History HEENT Surgical History: Reports: Cataract Surgery (bilateral), Tonsillectomy Musculoskeletal Surgical History: Reports: Knee Replacement (bilateral), Shoulder Surgery (right, open) Social & Family History - Family History Family Medical History: Noncontributory - Tobacco Use Smoking Status *Q: Never Smoker - Caffeine Use Caffeine Use: Reports: Coffee, Soda - Alcohol Use Alcohol Use History: No - Recreational Drug Use Recreational Drug Use: No - Living Situation & Occupation Living situation: Reports: , with Family (Daughter) Occupation: Retired Review of Systems - Review of Systems Review Of Systems: Comprehensive ROS is negative, except as noted in HPI. ED EXAM, GENERAL - Physical Exam Exam: See Below Exam Limited By: No Limitations General Appearance: Alert, WD/WN, No Apparent Distress Extremities: Other (Minimal, if any, swelling to the lateral malleolus of the left ankle, when compared to the right. Numerous venous varicosities, but no distinct ecchymosis seen. The patient reports significant tenderness to palpation primarily to the lateral malleolus, but also to the medial malleolus, and anterior and posterior syndesmosis, with pain radiating to about chcf down her foot. She complains of pain induced with PROM. Neurovascular status of the left lower extremity is intact.) Course - Vital Signs Last Recorded V/S: Last Vital Signs Temp 36.5 C 08/25/19 23:57 Pulse 68 08/25/19 23:57 Resp 20 08/25/19 23:57 BP 118/66 08/26/19 00:10 Pulse Ox 99 08/25/19 23:57 - Orders/Labs/Meds Orders: Active Orders 24 hr Category Date Time Status Ankle Min 3V Lt [CR] Stat Exams 08/26/19 00:05 Taken DME for Discharge [COMM] Stat Oth 08/26/19 00:45 Ordered Meds: Medications Discontinued Medications Generic Name Dose Route Start Last Admin Trade Name Jamie PRN Reason Stop Dose Admin Tramadol HCl 100 mg 08/26/19 00:09 08/26/19 00:19 Ultram PO 08/26/19 00:10 100 mg ONETIME ONE Administration - Re-Assessments/Exams Free Text/Narrative Re-Assessment/Exam: 08/26/19 00:09 As above, the patient twisted her left ankle when she stepped in a hole while mowing the lawn around 7 hours ago. On examination, the ankle is tender, particularly to the lateral malleolus, and there may be a slight amount of edema to the lateral malleolus, although no other abnormal findings. The triage note indicates ecchymosis to the lateral malleolus, however, on my evaluation, I note that the patient has numerous superficial veins, but I do not see e cchymosis. I suspect that she has a sprain, however, I have ordered x-rays of the ankle to evaluate. In meantime, the patient would like something for pain. Given her age, I have elected to order tramadol. 08/26/19 00:44 4-view radiographs of the left ankle appear to show osteopenia, but no fractures or dislocations. Formal read per the radiologist pending. Based on the above, I will order a stirrup splint. 08/26/19 00:52 X-ray results discussed with the patient. I will discharge her home with a prescription for tramadol that she can take in addition to [id number] Tylenol. I would like her to ice and elevate her left ankle as much as possible over the next 2 days, to help minimize swelling, and wear the splint for the next week or so. If she continues to have pain after a couple of weeks, I would like her to follow-up with her Orthopedic Surgeon, Dr. Bauer. Departure - Departure Time of Disposition: 00:50 Disposition: Home, Self-Care 01 Condition: Good Clinical Impression: Left ankle sprain - Discharge Information *PRESCRIPTION DRUG MONITORING PROGRAM REVIEWED*: Not Applicable *COPY OF PRESCRIPTION DRUG MONITORING REPORT IN PATIENT BARRY: Not Applicable Prescriptions: traMADol [Ultram] 1 tab PO Q6H PRN #10 tab PRN Reason: Pain Instructions: Ankle Sprain, [id number] Referrals: Izzy Hein MD [Primary Care Provider] - Primo Grant MD [Ordering Only Provider] - Scottie Bauer DO [Physician] - Nabil Carroll MD [Physician] - Forms: ED Department Discharge Additional Instructions: You were seen in the emergency room after twisting your left ankle while mowing her lawn. Work-up in the ER included x-rays of your left ankle which showed no broken bones or dislocations. Based on your history, physical exam, and ER x-rays, you have most likely sprained your left ankle. We recommend that you ice and elevate your left ankle as much as possible over the next 2 days, to help minimize swelling. You may take [id number] Tylenol as needed for discomfort. You have been prescribed the opioid pain reliever tramadol. You may take 1 tablet of tramadol up to every 6 hours, as needed for pain not relieved by Tylenol. If you take tramadol, do not drive for 12 hours afterwards. Tramadol may cause constipation, so consider taking a stool softener. You have been placed into a stirrup splint. We recommend that you apply the splint each morning, and remove it at bedtime. We recommend that you wear the splint for 7 to 10 days, after which you should begin walking without it. Your ankle will likely still be sore at that time, however, if you are still having pain after 2 weeks, we recommend that you follow-up with your Orthopedic Surgeon, Dr. Scottie Bauer, for reevaluation. If any other problems, please do not hesitate to return to the ER. Sepsis Event Note (ED) - Evaluation Sepsis Screening Result: No Definite Risk - Focused Exam Vital Signs: Vital Signs Temp Pulse Resp BP Pulse Ox 08/26/19 00:10 118/66 08/25/19 23:57 36.5 C 68 20 99 - My Orders Last 24 Hours: My Active Orders 08/26/19 00:05 Ankle Min 3V Lt [CR] Stat 08/26/19 00:45 DME for Discharge [COMM] Stat - Assessment/Plan Last 24 Hours: My Active Orders 08/26/19 00:05 Ankle Min 3V Lt [CR] Stat 08/26/19 00:45 DME for Discharge [COMM] Stat
--- NOTE | 2019-08-26 07:22 | CR ---
Left ankle: 4 views of the left ankle were obtained. Comparison: No prior ankle study. Vascular calcification is noted. Bony structures are osteopenic. Ankle mortise is symmetric. Bony densities are noted off the dorsal mid foot compatible with old injury. Slight plantar calcifications are seen off the calcaneus. Minimal plantar spur is seen. No acute fracture, dislocation or other bony abnormality is appreciated. Impression: 1. Multiple findings as noted above. 2. No acute bony abnormality is appreciated. Diagnostic code #2 Study was dictated in MDT
== END 2019-08-26 01:16 | disposition home or self-care (01) ==
LOC: JD.ED 23:46
DX: S93.402A Sprain of unspecified ligament of left ankle, initial encounter (principal); E78.00 Pure hypercholesterolemia, unspecified; F41.9 Anxiety disorder, unspecified; F32.9 Major depressive disorder, single episode, unspecified; E03.9 Hypothyroidism, unspecified; N18.9 Chronic kidney disease, unspecified; Z79.82 Long term (current) use of aspirin; Z79.899 Other long term (current) drug therapy; X50.1XXA Overexertion from prolonged static or awkward postures, initial encounter
CPT/HCPCS: 73610; 99283; A9270

== ENCOUNTER 2019-12-08 02:49 | Emergency (ER) | payer MEDICARE, MEDICAID ==
--- NOTE | 2019-12-08 03:09 | EDM.PDOC ---
ED HPI GENERAL MEDICAL PROBLEM - General Chief Complaint: Lower Extremity Injury/Pain Stated Complaint: LEFT LEG OOZING-PAIN AFTER VERICOSE VEIN SURGERY Time Seen by Provider: 12/08/19 03:08 - History of Present Illness INITIAL COMMENTS - FREE TEXT/NARRATIVE: 79-year-old female presents the emergency room with left leg pain. A little over week ago the patient had vein sclerosing procedure done on her left leg. She has multiple incisions but over the medial anterior thigh she is having worsening pain. Apparently this was ultrasounded on Thursday or Thursday at the [facility] but the patient has not gotten the results of this yet. It is unclear to me if the ultrasound was done as routine postop surveillance or the patient was having pain at that time out of the ordinary for the procedure. Patient states that her pain really escalated this evening and it is keeping her up at night the portion of leg that hurts is distal half of the thigh in the anterior medial portion. Patient denies any fevers or chills no breathing difficulties or shortness of breath. Left Lower Leg Pain Score (Numeric/FACES): 8 - Related Data Allergies Allergy/AdvReac Type Severity Reaction Status Date / Time baclofen Allergy Itching Verified 12/08/19 03:19 hydrocodone Allergy Itching Verified 12/08/19 03:19 Home Meds: Home Meds Albuterol [Ventolin HFA] 1 inh INH Q4HR PRN 01/12/19 [History] Aspirin 81 mg PO DAILY 01/12/19 [History] Escitalopram [Lexapro] 10 mg PO DAILY 01/31/19 [History] Ezetimibe 10 mg PO BEDTIME 01/31/19 [History] Fluticasone Propion/Salmeterol [Fluticasone-Salmeterol 100-50] 1 puff INH ASDIRECTED 01/31/19 [History] Furosemide 20 mg PO DAILY 01/31/19 [History] Levothyroxine 75 mcg PO ACBREAKFAST 01/31/19 [History] atorvaSTATin [Lipitor] 20 mg PO DAILY 01/31/19 [History] traZODone HCl [Trazodone HCl] 50 mg PO BEDTIME 01/31/19 [History] Ascorbic Acid [Vitamin C] 1 tab PO DAILY 06/12/19 [History] Calcium Carbonate [Calcium] 1 tab PO DAILY 06/12/19 [History] Cholecalciferol (Vitamin D3) [Vitamin D] 5,000 unit PO DAILY 06/12/19 [History] Fluticasone Propion/Salmeterol [Advair 250-50 Diskus] 2 puff INH DAILY 06/12/19 [History] traMADol [Ultram] 1 tab PO Q6H PRN #10 tab 08/26/19 [Rx] Past Medical History HEENT History: Reports: Impaired Vision (wears glasses) Other HEENT History: wears glasses Cardiovascular History: Reports: High Cholesterol Respiratory History: Reports: Asthma (possible) Gastrointestinal History: Reports: GERD, Hiatal Hernia Genitourinary History: Reports: Chronic Renal Insuffiency Other Genitourinary History: renal failure 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: Neurological History: Reports: None Psychiatric History: Reports: Anxiety, Depression Endocrine/Metabolic History: Reports: Hypothyroidism Hematologic History: Reports: None Immunologic History: Reports: None Oncologic (Cancer) History: Reports: None Dermatologic History: Reports: None - Infectious Disease History Infectious Disease History: Reports: None - Past Surgical History HEENT Surgical History: Reports: Cataract Surgery (bilateral), Tonsillectomy Musculoskeletal Surgical History: Reports: Knee Replacement (bilateral), Shoulder Surgery (right, open) Social & Family History - Family History Family Medical History: Noncontributory - Caffeine Use Caffeine Use: Reports: Coffee, Soda - Living Situation & Occupation Living situation: Reports: , with Family (Daughter) Occupation: Retired Review of Systems - Review of Systems Review Of Systems: See Below Constitutional: Reports: No Symptoms Respiratory: Reports: No Symptoms Cardiovascular: Reports: No Symptoms GI/Abdominal: Reports: No Symptoms Genitourinary: Reports: No Symptoms Musculoskeletal: Reports: No Symptoms ED EXAM, GENERAL - Physical Exam Exam: See Below Exam Limited By: No Limitations General Appearance: Alert, No Apparent Distress Respiratory/Chest: No Respiratory Distress, Lungs Clear, Normal Breath Sounds Cardiovascular: Regular Rate, Rhythm, No Edema, No Murmur Extremities: Other (Nation of her lower extremity on the left shows multiple incisions with surrounding ecchymosis some with serous drainage none have any associated warmth or exudative drainage. On the thigh the distal half anterior medial component she has some marked tenderness it seems to be more so than normal she does not have increased redness with this.) Course - Vital Signs Last Recorded V/S: Last Vital Signs Temp 36.2 C 12/08/19 03:06 Pulse 82 12/08/19 03:06 Resp 16 12/08/19 03:06 BP 168/85 H 12/08/19 03:06 Pulse Ox 98 12/08/19 03:06 - Re-Assessments/Exams Free Text/Narrative Re-Assessment/Exam: 12/08/19 03:35 Offered to do a repeat ultrasound of her extremity at this point about the possibility of a deep vein thrombosis in the thigh however the patient declined this we are trying to find the results of her test done earlier this week. I informed the patient that something changed and a ultrasound done now may show stuff that an ultrasound did 24 hours ago may not of she says she does not have the patience to wait for another ultrasound. We are trying to find her ultrasound report. 12/08/19 03:49 We were able to get a hold of the ultrasound report and this does show an expected occlusion of the left greater saphenous vein after the vein sclerosing procedure. No abnormalities noted. I informed the patient of the findings and she would like to go home. Departure - Departure Time of Disposition: 03:50 Disposition: Home, Self-Care 01 Clinical Impression: Postop check - Discharge Information Referrals: Izzy Hein MD [Primary Care Provider] - Forms: ED Department Discharge Additional Instructions: Return to the emergency room with any questions problems or worsening symptoms. Follow-up with Dr. Serra early this next week. Call his office this morning. Sepsis Event Note (ED) - Focused Exam Vital Signs: Vital Signs Temp Pulse Resp BP Pulse Ox 12/08/19 03:06 36.2 C 82 16 168/85 H 98
== END 2019-12-08 04:08 | disposition home or self-care (01) ==
LOC: JD.ED 02:49
DX: Z48.812 Encounter for surgical aftercare following surgery on the circulatory system (principal); E78.00 Pure hypercholesterolemia, unspecified; J45.909 Unspecified asthma, uncomplicated; N18.9 Chronic kidney disease, unspecified; F41.9 Anxiety disorder, unspecified; F32.9 Major depressive disorder, single episode, unspecified; E03.9 Hypothyroidism, unspecified; Z79.82 Long term (current) use of aspirin; Z79.899 Other long term (current) drug therapy; Z88.8 Allergy status to other drugs, medicaments and biological substances; Z88.5 Allergy status to narcotic agent
CPT/HCPCS: 99282; 99283-25

== ENCOUNTER 2019-12-14 04:47 | Emergency (ER) | payer MEDICARE, MEDICAID ==
--- NOTE | 2019-12-14 05:47 | EDM.PDOC ---
ED HPI GENERAL MEDICAL PROBLEM - General Chief Complaint: Skin Complaint Stated Complaint: LEFT LEG BRUISED AND POSS INFECTED Time Seen by Provider: 12/14/19 05:23 Source of Information: Reports: Patient History Limitations: Reports: No Limitations - History of Present Illness INITIAL COMMENTS - FREE TEXT/NARRATIVE: Mrs. Mcneal is a very pleasant 79-year-old woman who states that she underwent left lower extremity venous sclerosis treatment on 12/02/2019. She was experiencing medial left thigh pain postoperatively, therefore underwent a Doppler ultrasound of her left lower extremity on 12/05 or 12/07/2019, at the [facility]. The ultrasound reportedly found an occluded left greater saphenous vein, but no DVT. Medical records indicate that the patient was then seen in this ED on 12/08/2019, with a complaint at that time of continued medial left thigh pain. A repeat Doppler of the left lower extremity was offered, but declined. The patient now returns to the ED stating that she continues to have medial left thigh pain, but that she also developed a pruritic rash to her bilateral medial thighs yesterday. She started applying calmoseptine = menthol + Zn-oxide cream. Has not had a fever. She has not seen her Vascular Surgeon or PCP since her surgery, although she states that she has an appointment to see her vascular surgeon this coming 12/19/2019. Here in the ED, the patient's initial BP is found to be modestly elevated at 157/93, otherwise, she is hemodynamically stable, afebrile, saturating 96% on room air. Other than her medial left thigh pain and bilateral medial thigh pruritic rash, the patient denies having a recent fever, chills, sore throat, ear pain, nasal or sinus congestion, cough, dyspnea, chest pain, palpitations, nausea, vomiting, constipation, diarrhea, abdominal pain, urinary symptoms, recent weight gain or weight loss, recent bloody bowel movements or black bowel movements, recent joint aches, or headaches. The patient's PCP is Dr. Izzy Hein. Her Vascular Surgeon is Dr. Auid Serra. Her Architectural Design Professor is Dr. Primo Grant. Her Orthopedic Surgeon is Dr. Jude Bauer. Her pain specialist is Dr. Nabil Carroll. Left Leg Pain Score (Numeric/FACES): 5 - Related Data Allergies Allergy/AdvReac Type Severity Reaction Status Date / Time baclofen Allergy Itching Verified 12/14/19 04:57 hydrocodone Allergy Itching Verified 12/14/19 04:57 Home Meds: Home Meds Albuterol [Ventolin HFA] 1 inh INH Q4HR PRN 01/12/19 [History] Aspirin 81 mg PO DAILY 01/12/19 [History] Escitalopram [Lexapro] 10 mg PO DAILY 01/31/19 [History] Ezetimibe 10 mg PO BEDTIME 01/31/19 [History] Fluticasone Propion/Salmeterol [Fluticasone-Salmeterol 100-50] 1 puff INH ASDIRECTED 01/31/19 [History] Furosemide 20 mg PO DAILY 01/31/19 [History] Levothyroxine 75 mcg PO ACBREAKFAST 01/31/19 [History] atorvaSTATin [Lipitor] 20 mg PO DAILY 01/31/19 [History] traZODone HCl [Trazodone HCl] 50 mg PO BEDTIME 01/31/19 [History] Ascorbic Acid [Vitamin C] 1 tab PO DAILY 06/12/19 [History] Calcium Carbonate [Calcium] 1 tab PO DAILY 06/12/19 [History] Cholecalciferol (Vitamin D3) [Vitamin D] 5,000 unit PO DAILY 06/12/19 [History] Fluticasone Propion/Salmeterol [Advair 250-50 Diskus] 2 puff INH DAILY 06/12/19 [History] traMADol [Ultram] 1 tab PO Q6H PRN #10 tab 08/26/19 [Rx] Past Medical History HEENT History: Reports: Impaired Vision (wears glasses) Cardiovascular History: Reports: High Cholesterol Respiratory History: Reports: Asthma (possible) Gastrointestinal History: Reports: GERD, Hiatal Hernia Genitourinary History: Reports: Chronic Renal Insuffiency Musculoskeletal History: Reports: Osteoarthritis, Other (See Below) (Osteopenia) Psychiatric History: Reports: Anxiety, Depression Endocrine/Metabolic History: Reports: Hypothyroidism - Past Surgical History HEENT Surgical History: Reports: Cataract Surgery (bilateral), Tonsillectomy Cardiovascular Surgical History: Reports: Vascular Surgery (LLE vein sclerosis 12/02/2019) Musculoskeletal Surgical History: Reports: Knee Replacement (bilateral), Shoulder Surgery (right, open) Social & Family History - Family History Family Medical History: Noncontributory - Tobacco Use Smoking Status *Q: Never Smoker - Caffeine Use Caffeine Use: Reports: Coffee, Soda - Alcohol Use Alcohol Use History: No - Recreational Drug Use Recreational Drug Use: No - Living Situation & Occupation Living situation: Reports: , with Family (Daughter) Occupation: Retired ED ROS GENERAL - Review of Systems Review Of Systems: Comprehensive ROS is negative, except as noted in HPI. ED EXAM, SKIN/RASH Exam: See Below Exam Limited By: No Limitations General Appearance: Alert, WD/WN, No Apparent Distress Extremities: Other (There are numerous weeping surgical puncture wounds the anterior left leg, but no visible abnormality to the medial left thigh, where the patient is complaining of pruritus, such as erythema, ecchymosis, abrasion, or visible rash. Similarly, no visible rash to the medial right thigh. Neurovascular status of both lower extremities is intact.) Course - Vital Signs Last Recorded V/S: Last Vital Signs Temp 36.5 C 12/14/19 04:55 Pulse 69 12/14/19 04:55 Resp 17 12/14/19 04:55 BP 157/93 H 12/14/19 04:55 Pulse Ox 96 12/14/19 04:55 - Re-Assessments/Exams Free Text/Narrative Re-Assessment/Exam: 12/14/19 05:42 As above, the patient has been experiencing medial left thigh pain ever since she underwent left lower extremity vein sclerosis on 12/02/2019, but now presents to the ED with a pruritic rash to the medial aspect of both of her thighs since yesterday. On physical exam, however, there is no visible rash. I offered to perform a repeat Doppler ultrasound of her left lower extremity to exclude a DVT, however, the patient declined. She will be following up at Dr. Serra's office this coming 12/19/2019. Departure - Departure Time of Disposition: 05:44 Disposition: Home, Self-Care 01 Condition: Good Clinical Impression: Pruritus - Discharge Information *PRESCRIPTION DRUG MONITORING PROGRAM REVIEWED*: Not Applicable *COPY OF PRESCRIPTION DRUG MONITORING REPORT IN PATIENT BARRY: Not Applicable Instructions: Pruritus Referrals: Izzy Hein MD [Primary Care Provider] - Audi Serra MD [Ordering Only Provider] - Scottie Bauer DO [Physician] - Nabil Carroll MD [Ordering Only Provider] - Primo Grant MD [Ordering Only Provider] - Forms: ED Department Discharge Additional Instructions: You were seen in the emergency room for continued left thigh pain following vein sclerosis surgery on 12/02/2019, then developing an itchy rash to both thighs yesterday. On examination, no rash was visible. An offered to perform a Doppler ultrasound of your left lower extremity to evaluate for a DVT was declined. We recommend that you follow-up with your Vascular Surgeon, Dr. Audi Serra, at your previously scheduled appointment this coming 12/19/2019. If any other problems, please do not hesitate to return to the ER. Sepsis Event Note (ED) - Evaluation Sepsis Screening Result: No Definite Risk - Focused Exam Vital Signs: Vital Signs Temp Pulse Resp BP Pulse Ox 12/14/19 04:55 36.5 C 69 17 157/93 H 96
== END 2019-12-14 05:58 | disposition home or self-care (01) ==
LOC: JD.ED 04:47
DX: L29.9 Pruritus, unspecified (principal); E78.00 Pure hypercholesterolemia, unspecified; M19.90 Unspecified osteoarthritis, unspecified site; N18.9 Chronic kidney disease, unspecified; F41.9 Anxiety disorder, unspecified; F32.9 Major depressive disorder, single episode, unspecified; E03.9 Hypothyroidism, unspecified; Z88.8 Allergy status to other drugs, medicaments and biological substances; Z88.5 Allergy status to narcotic agent; Z79.82 Long term (current) use of aspirin; Z79.899 Other long term (current) drug therapy
CPT/HCPCS: 99282; 99283

== ENCOUNTER 2019-12-27 05:09 | Emergency (ER) | payer MEDICARE, MEDICAID ==
--- NOTE | 2019-12-27 06:49 | EDM.PDOC ---
ED HPI GENERAL MEDICAL PROBLEM - General Chief Complaint: Skin Complaint Stated Complaint: bump on her leg Time Seen by Provider: 12/27/19 05:30 Source of Information: Reports: Patient History Limitations: Reports: No Limitations - History of Present Illness INITIAL COMMENTS - FREE TEXT/NARRATIVE: The patient presents with left leg swelling and pain. She had varicose vein surgery on 12/02/19. She noticed some swelling to the front of her left lower leg with some pain. She has no chest pain or shortness of breath. She has no history of DVT or PE. Onset: Gradual Duration: Day(s): Location: Reports: Lower Extremity, Left Quality: Reports: Sharp Severity: Mild Improves with: Reports: None Worsens with: Reports: None Associated Symptoms: Reports: No Other Symptoms Left Leg Pain Score (Numeric/FACES): 5 - Related Data Allergies Allergy/AdvReac Type Severity Reaction Status Date / Time baclofen Allergy Itching Verified 12/27/19 05:19 hydrocodone Allergy Itching Verified 12/27/19 05:19 Home Meds: Home Meds Albuterol [Ventolin HFA] 1 inh INH Q4HR PRN 01/12/19 [History] Aspirin 81 mg PO DAILY 01/12/19 [History] Escitalopram [Lexapro] 10 mg PO DAILY 01/31/19 [History] Ezetimibe 10 mg PO BEDTIME 01/31/19 [History] Fluticasone Propion/Salmeterol [Fluticasone-Salmeterol 100-50] 1 puff INH ASDIRECTED 01/31/19 [History] Furosemide 20 mg PO DAILY 01/31/19 [History] Levothyroxine 75 mcg PO ACBREAKFAST 01/31/19 [History] atorvaSTATin [Lipitor] 20 mg PO DAILY 01/31/19 [History] traZODone HCl [Trazodone HCl] 50 mg PO BEDTIME 01/31/19 [History] Ascorbic Acid [Vitamin C] 1 tab PO DAILY 06/12/19 [History] Calcium Carbonate [Calcium] 1 tab PO DAILY 06/12/19 [History] Cholecalciferol (Vitamin D3) [Vitamin D] 5,000 unit PO DAILY 06/12/19 [History] Fluticasone Propion/Salmeterol [Advair 250-50 Diskus] 2 puff INH DAILY 06/12/19 [History] traMADol [Ultram] 1 tab PO Q6H PRN #10 tab 08/26/19 [Rx] Past Medical History HEENT History: Reports: Impaired Vision Other HEENT History: wears glasses Cardiovascular History: Reports: High Cholesterol Respiratory History: Reports: Asthma Gastrointestinal History: Reports: GERD, Hiatal Hernia Genitourinary History: Reports: Chronic Renal Insuffiency Other Genitourinary History: renal failure [employer]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: Musculoskeletal History: Reports: Osteoarthritis, Other (See Below) Neurological History: Reports: None Psychiatric History: Reports: Anxiety, Depression Endocrine/Metabolic History: Reports: Hypothyroidism Hematologic History: Reports: None Immunologic History: Reports: None Oncologic (Cancer) History: Reports: None Dermatologic History: Reports: None - Infectious Disease History Infectious Disease History: Reports: None - Past Surgical History Head Surgeries/Procedures: Reports: None HEENT Surgical History: Reports: Cataract Surgery, Tonsillectomy Cardiovascular Surgical History: Reports: Vascular Surgery Musculoskeletal Surgical History: Reports: Knee Replacement, Shoulder Surgery Social & Family History - Family History Family Medical History: Noncontributory - Tobacco Use Tobacco Use Status *Q: Never Tobacco User - Caffeine Use Caffeine Use: Reports: Soda - Recreational Drug Use Recreational Drug Use: No - Living Situation & Occupation Living situation: Reports: , with Family (Daughter) Occupation: Retired ED ROS GENERAL - Review of Systems Review Of Systems: See Below Constitutional: Reports: No Symptoms HEENT: Reports: No Symptoms Respiratory: Reports: No Symptoms Cardiovascular: Reports: No Symptoms Endocrine: Reports: No Symptoms GI/Abdominal: Reports: No Symptoms : Reports: No Symptoms Musculoskeletal: Reports: Other (Left leg swelling and pain) ED EXAM, SKIN/RASH Exam: See Below Exam Limited By: No Limitations General Appearance: Alert, No Apparent Distress Ears: Normal External Exam Nose: Normal Inspection Head: Atraumatic, Normocephalic Neck: Normal Inspection Respiratory/Chest: No Respiratory Distress, Lungs Clear, Normal Breath Sounds Cardiovascular: Regular Rate, Rhythm, No Edema, No Murmur GI/Abdominal: Soft, Non-Tender, No Organomegaly, No Mass Extremities: Other (small scars to the front of the leg with mild edema and pain upon palpation. Good sensation and pulses distally.) Course - Vital Signs Last Recorded V/S: Last Vital Signs Temp 97.1 F 12/27/19 05:15 Pulse 68 12/27/19 05:15 Resp 15 12/27/19 05:15 BP 154/87 H 12/27/19 05:15 Pulse Ox 97 12/27/19 05:15 - Orders/Labs/Meds Orders: Active Orders 24 hr Category Date Time Status Duplex Lwr Ext Veins Ltd Lt [US] Stat Exams 12/27/19 05:33 Taken - Re-Assessments/Exams Free Text/Narrative Re-Assessment/Exam: 12/27/19 06:50 I ordered an US of her leg and it showed no evidence of DVT. 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 12/27/19 07:02 She is on aspirin. I will keep her on that and have her wear compression hose. Departure - Departure Time of Disposition: 07:00 Disposition: Home, Self-Care 01 Condition: Good Clinical Impression: Left leg pain - Discharge Information Referrals: Izzy Hein MD [Primary Care Provider] - 1 Week Forms: ED Department Discharge Additional Instructions: Take tylenol or motrin for pain. Put warm compress on your leg 3 times per day for 3 days. Please return if you are worse. You have a clot in your superficial veins. Keep taking aspirin. Wear compression hose. Follow up with your doctor within a week. Please return if you are worse. Sepsis Event Note (ED) - Evaluation Sepsis Screening Result: No Definite Risk - Focused Exam Vital Signs: Vital Signs Temp Pulse Resp BP Pulse Ox 12/27/19 05:15 97.1 F 68 15 154/87 H 97 - My Orders Last 24 Hours: My Active Orders 12/27/19 05:33 VL Duplex Lwr Ext Veins Ltd Lt [US] Stat - Assessment/Plan Last 24 Hours: My Active Orders 12/27/19 05:33 VL Duplex Lwr Ext Veins Ltd Lt [US] Stat
== END 2019-12-27 07:15 | disposition home or self-care (01) ==
LOC: JD.ED 05:09
DX: M79.605 Pain in left leg (principal); R60.0 Localized edema; E78.00 Pure hypercholesterolemia, unspecified; J45.909 Unspecified asthma, uncomplicated; N18.9 Chronic kidney disease, unspecified; M19.90 Unspecified osteoarthritis, unspecified site; F41.9 Anxiety disorder, unspecified; F32.9 Major depressive disorder, single episode, unspecified; E03.9 Hypothyroidism, unspecified; Z79.82 Long term (current) use of aspirin; Z79.899 Other long term (current) drug therapy; Z88.8 Allergy status to other drugs, medicaments and biological substances; Z88.5 Allergy status to narcotic agent
CPT/HCPCS: 93971-LT; 99283; 99283-25

== ENCOUNTER 2020-02-28 03:53 | Emergency (ER) | payer MEDICARE, MEDICAID ==
--- NOTE | 2020-02-28 04:53 | EDM.PDOC ---
ED HPI GENERAL MEDICAL PROBLEM - General Chief Complaint: Lower Extremity Injury/Pain Stated Complaint: BUMP ON LEG Time Seen by Provider: 02/28/20 04:43 - History of Present Illness INITIAL COMMENTS - FREE TEXT/NARRATIVE: 79-year-old female presents the emergency room with a lump on her right leg. Patient had sclerosing therapy to her veins done nearly 3 months ago. Sometime tonight she noticed a bump on the medial posterior aspect of her knee near one of the sclerosing and drainage sites. This does not hurt too much but she was worried about it. Patient has been otherwise doing well. Right Posterior Knee Pain Score (Numeric/FACES): 4 - Related Data Allergies Allergy/AdvReac Type Severity Reaction Status Date / Time baclofen Allergy Itching Verified 02/28/20 04:05 hydrocodone Allergy Itching Verified 02/28/20 04:05 Home Meds: Home Meds Albuterol [Ventolin HFA] 1 inh INH Q4HR PRN 01/12/19 [History] Aspirin 81 mg PO DAILY 01/12/19 [History] Escitalopram [Lexapro] 10 mg PO DAILY 01/31/19 [History] Ezetimibe 10 mg PO BEDTIME 01/31/19 [History] Fluticasone Propion/Salmeterol [Fluticasone-Salmeterol 100-50] 1 puff INH ASDIRECTED 01/31/19 [History] Furosemide 20 mg PO DAILY 01/31/19 [History] Levothyroxine 75 mcg PO ACBREAKFAST 01/31/19 [History] atorvaSTATin [Lipitor] 20 mg PO DAILY 01/31/19 [History] traZODone HCl [Trazodone HCl] 50 mg PO BEDTIME 01/31/19 [History] Ascorbic Acid [Vitamin C] 1 tab PO DAILY 06/12/19 [History] Calcium Carbonate [Calcium] 1 tab PO DAILY 06/12/19 [History] Cholecalciferol (Vitamin D3) [Vitamin D] 5,000 unit PO DAILY 06/12/19 [History] Fluticasone Propion/Salmeterol [Advair 250-50 Diskus] 2 puff INH DAILY 06/12/19 [History] traMADol [Ultram] 1 tab PO Q6H PRN #10 tab 08/26/19 [Rx] Past Medical History HEENT History: Reports: Impaired Vision Other HEENT History: wears glasses Cardiovascular History: Reports: High Cholesterol Respiratory History: Reports: Asthma Gastrointestinal History: Reports: GERD, Hiatal Hernia Genitourinary History: Reports: Chronic Renal Insuffiency Other Genitourinary History: 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: Musculoskeletal History: Reports: Osteoarthritis, Other (See Below) Neurological History: Reports: None Psychiatric History: Reports: Anxiety, Depression Endocrine/Metabolic History: Reports: Hypothyroidism Hematologic History: Reports: None Immunologic History: Reports: None Oncologic (Cancer) History: Reports: None Dermatologic History: Reports: None - Infectious Disease History Infectious Disease History: Reports: None - Past Surgical History Head Surgeries/Procedures: Reports: None HEENT Surgical History: Reports: Cataract Surgery, Tonsillectomy Cardiovascular Surgical History: Reports: Vascular Surgery Musculoskeletal Surgical History: Reports: Knee Replacement, Shoulder Surgery Social & Family History - Family History Family Medical History: No Pertinent Family History - Tobacco Use Tobacco Use Status *Q: Never Tobacco User Second Hand Smoke Exposure: No - Caffeine Use Caffeine Use: Reports: None - Recreational Drug Use Recreational Drug Use: No - Living Situation & Occupation Living situation: Reports: , with Family (Daughter) Occupation: Retired Review of Systems - Review of Systems Review Of Systems: See Below Constitutional: Reports: No Symptoms Respiratory: Reports: No Symptoms Cardiovascular: Reports: No Symptoms GI/Abdominal: Reports: No Symptoms Neurological: Reports: No Symptoms ED EXAM, GENERAL - Physical Exam Exam: See Below Exam Limited By: No Limitations General Appearance: Alert, No Apparent Distress Respiratory/Chest: No Respiratory Distress, Lungs Clear, Normal Breath Sounds Cardiovascular: Regular Rate, Rhythm, No Edema, No Murmur Extremities: Other (Edema good capillary refill multiple areas of healing from the vein sclerosing procedure. The area of concern seems to be a firm nodular area in the superficial venous system. Minimally tender with palpation it is small roughly a centimeter by half centimeter. She has no surrounding erythema or warmth with it the lower leg in general is not erythematous or warm and not tender.) Course - Vital Signs Last Recorded V/S: Last Vital Signs Temp 36.6 C 02/28/20 03:59 Pulse 72 02/28/20 03:59 Resp 18 02/28/20 03:59 BP 140/124 H 12/22/20 03:59 Pulse Ox 95 02/28/20 03:59 - Re-Assessments/Exams Free Text/Narrative Re-Assessment/Exam: 02/28/20 05:16 I discussed this with the patient at some point she is to follow-up with her surgeon and have this rechecked. Departure - Departure Time of Disposition: 05:16 Disposition: Home, Self-Care 01 Clinical Impression: Saphenous vein injury - Discharge Information Referrals: Izzy Hein MD [Primary Care Provider] - Forms: ED Department Discharge Additional Instructions: Return to the emergency room with any questions problems or worsening symptoms. Follow-up with your vein surgeon as soon as practical. Try warm moist heat to the area for 15 to 20 minutes 4-5 times a day. Sepsis Event Note (ED) - Evaluation Sepsis Screening Result: No Definite Risk - Focused Exam Vital Signs: Vital Signs Temp Pulse Resp BP Pulse Ox 02/28/20 03:59 36.6 C 72 18 140/124 H 95
== END 2020-02-28 05:26 | disposition home or self-care (01) ==
LOC: JD.ED 03:53
DX: S85.30 Unspecified injury of greater saphenous vein at lower leg level (principal); E78.00 Pure hypercholesterolemia, unspecified; J45.909 Unspecified asthma, uncomplicated; N18.9 Chronic kidney disease, unspecified; M19.90 Unspecified osteoarthritis, unspecified site; F41.9 Anxiety disorder, unspecified; F32.9 Major depressive disorder, single episode, unspecified; E03.9 Hypothyroidism, unspecified; Z88.1 Allergy status to other antibiotic agents; Z88.5 Allergy status to narcotic agent; Z79.82 Long term (current) use of aspirin; Z79.899 Other long term (current) drug therapy
CPT/HCPCS: 99283

== ENCOUNTER 2020-04-09 19:47 | Emergency (ER) | payer MEDICARE, MEDICAID ==
--- NOTE | 2020-04-09 20:35 | EDM.PDOC ---
ED HPI GENERAL MEDICAL PROBLEM - General Chief Complaint: Upper Extremity Injury/Pain Stated Complaint: fall pain on left side Time Seen by Provider: 04/09/20 20:17 Source of Information: Reports: Patient, Family, RN Notes Reviewed History Limitations: Reports: No Limitations - History of Present Illness INITIAL COMMENTS - FREE TEXT/NARRATIVE: Patient is a 79-year-old female presenting to the emergency department with complaints of pain to her right thumb, left ribs, and left forehead after falling. She states she was try to get the car and her knee gave out causing the fall. She did hit her head and broke her glasses. She did not lose consciousness. Denies any dizziness or vision changes at this time. She does take aspirin 324 mg daily. She states that she also hit her left ribs. Denies any shortness of breath, but it is painful if she takes a deep breath. Additionally, she complains of pain to her MCP joint of her right thumb. Denies any previous injury to these areas. Right Finger-Thumb Pain Score (Numeric/FACES): 9 Left Thoracic Pain Score (Numeric/FACES): 6 - Related Data Allergies Allergy/AdvReac Type Severity Reaction Status Date / Time baclofen Allergy Itching Verified 04/09/20 20:18 hydrocodone Allergy Itching Verified 04/09/20 20:18 Home Meds: Home Meds Albuterol [Ventolin HFA] 1 inh INH Q4HR PRN 01/12/19 [History] Aspirin 81 mg PO DAILY 01/12/19 [History] Escitalopram [Lexapro] 10 mg PO DAILY 01/31/19 [History] Ezetimibe 10 mg PO BEDTIME 01/31/19 [History] Fluticasone Propion/Salmeterol [Fluticasone-Salmeterol 100-50] 1 puff INH ASDIRECTED 01/31/19 [History] Furosemide 20 mg PO DAILY 01/31/19 [History] Levothyroxine 75 mcg PO ACBREAKFAST 01/31/19 [History] atorvaSTATin [Lipitor] 20 mg PO DAILY 01/31/19 [History] traZODone HCl [Trazodone HCl] 50 mg PO BEDTIME 01/31/19 [History] Ascorbic Acid [Vitamin C] 1 tab PO DAILY 06/12/19 [History] Calcium Carbonate [Calcium] 1 tab PO DAILY 06/12/19 [History] Cholecalciferol (Vitamin D3) [Vitamin D] 5,000 unit PO DAILY 06/12/19 [History] Fluticasone Propion/Salmeterol [Advair 250-50 Diskus] 2 puff INH DAILY 06/12/19 [History] traMADol [Ultram] 1 tab PO Q6H PRN #10 tab 08/26/19 [Rx] Past Medical History HEENT History: Reports: Impaired Vision Other HEENT History: wears glasses Cardiovascular History: Reports: High Cholesterol, Other (See Below) Other Cardiovascular History: superficial blood clots Respiratory History: Reports: Asthma Gastrointestinal History: Reports: GERD, Hiatal Hernia Genitourinary History: Reports: Chronic Renal Insuffiency Other Genitourinary History: 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: Musculoskeletal History: Reports: Osteoarthritis, Other (See Below) Neurological History: Reports: None Psychiatric History: Reports: Anxiety, Depression Endocrine/Metabolic History: Reports: Hypothyroidism Hematologic History: Reports: None Immunologic History: Reports: None Oncologic (Cancer) History: Reports: None Dermatologic History: Reports: None - Infectious Disease History Infectious Disease History: Reports: None - Past Surgical History Head Surgeries/Procedures: Reports: None HEENT Surgical History: Reports: Cataract Surgery, Tonsillectomy Cardiovascular Surgical History: Reports: Varicose, Vascular Surgery Musculoskeletal Surgical History: Reports: Knee Replacement, Shoulder Surgery Social & Family History - Family History Family Medical History: No Pertinent Family History - Tobacco Use Tobacco Use Status *Q: Former Tobacco User Used Tobacco, but Quit: Yes Month/Year Tobacco Last Used: 60 years ago - Caffeine Use Caffeine Use: Reports: None - Recreational Drug Use Recreational Drug Use: No - Living Situation & Occupation Living situation: Reports: , with Family (Daughter) Occupation: Retired Review of Systems - Review of Systems Review Of Systems: Comprehensive ROS is negative, except as noted in HPI. ED EXAM, GENERAL - Physical Exam Exam: See Below General Appearance: Alert, WD/WN, No Apparent Distress Head: Other (Hematoma to left forehead.) Respiratory/Chest: No Respiratory Distress, Lungs Clear, Normal Breath Sounds, No Accessory Muscle Use, Other (Tenderness to palpation of the left lateral chest. No obvious deformity or ecchymosis.) Cardiovascular: Normal Peripheral Pulses, Regular Rate, Rhythm, No Edema, No Gallop, No JVD, No Murmur, No Rub Extremities: Other (Tenderness to palpation over the MCP joint of the right thumb. There is a mild amount of swelling and ecchymosis. Range of motion is limited due to pain.) Neurological: Alert, Oriented, CN II-XII Intact, Normal Cognition, Normal Gait, Normal Reflexes, No Motor/Sensory Deficits Psychiatric: Normal Affect, Normal Mood Skin Exam: Warm, Dry, Intact, Normal Color, No Rash Course - Vital Signs Last Recorded V/S: Last Vital Signs Temp 96.9 F 04/09/20 20:15 Pulse 82 04/09/20 20:15 Resp 18 04/09/20 20:15 BP 134/74 04/09/20 20:15 Pulse Ox 95 04/09/20 20:15 - Orders/Labs/Meds Orders: Active Orders 24 hr Category Date Time Status Hand Comp Min 3V Rt [CR] Stat Exams 04/09/20 20:28 Taken Head wo Cont [CT] Stat Exams 04/09/20 20:28 Taken Ribs 2V wo Chest Lt [CR] Stat Exams 04/09/20 20:28 Taken DME for Discharge [COMM] Routine Oth 04/09/20 22:08 Ordered Meds: Medications Discontinued Medications Generic Name Dose Route Start Last Admin Trade Name Jamie PRN Reason Stop Dose Admin Acetaminophen 975 mg 04/09/20 21:20 04/09/20 21:29 Tylenol PO 04/09/20 21:21 975 mg NOW ONE Administration Acetaminophen Confirm 04/09/20 21:38 04/09/20 21:41 Tylenol Administered 04/09/20 21:39 Not Given Dose 975 mg .ROUTE .STK-MED ONE - Re-Assessments/Exams Free Text/Narrative Re-Assessment/Exam: Patient is a 79-year-old female presenting to the emergency department with complaints of pain to her right thumb, left ribs, and left forehead after falling. She did not have loss of consciousness, however she is on aspirin 324 mg. Neurologic exam is normal, however they are concerned that she could "have a slow bleed ". I have ordered an x-ray of the right hand, left rib x-ray, and a CT scan of the head without contrast. 04/09/20 22:02 CT scan of the head showed no acute abnormalities. There is no obvious rib fractures. Chest x-ray is normal. X-ray of the right hand showed no fractures the area of discomfort. I will provide her with a thumb spica splint for comfort. Recommend Tylenol and ibuprofen as needed. Discharge instructions as documented. Departure - Departure Time of Disposition: 22:09 Disposition: Home, Self-Care 01 Condition: Good Clinical Impression: Contusion, chest wall Qualifiers: Encounter type: initial encounter Laterality: left Qualified Code(s): S20.212A - Contusion of left front wall of thorax, initial encounter Contusion of hand, right Qualifiers: Encounter type: initial encounter Qualified Code(s): S60.221A - Contusion of right hand, initial encounter Traumatic hematoma of forehead Qualifiers: Encounter type: initial encounter Qualified Code(s): S00.83XA - Contusion of other part of head, initial encounter - Discharge Information Referrals: Izzy Hein MD [Primary Care Provider] - Forms: ED Department Discharge Additional Instructions: You were seen in the emergency department today for pain to your right thumb, left ribs, as well as your left forehead. A CT scan of your head was completed and found to be normal. X-rays of your ribs and hand were also completed and showed no fractures. You have been provided with a thumb spica splint for your right hand. Wear this as needed for comfort for the next few days. Recommend intermittent ice to the areas of discomfort. You may use Tylenol or ibuprofen as needed. If symptoms do not improve significantly towards the end of the week, recommend follow-up with your primary care provider. Return to the ER as needed. Sepsis Event Note (ED) - Evaluation Sepsis Screening Result: No Definite Risk - Focused Exam Vital Signs: Vital Signs Temp Pulse Resp BP Pulse Ox 04/09/20 20:15 96.9 F 82 18 134/74 95 - My Orders Last 24 Hours: My Active Orders 04/09/20 20:28 Hand Comp Min 3V Rt [CR] Stat Head wo Cont [CT] Stat Ribs 2V wo Chest Lt [CR] Stat 04/09/20 22:08 DME for Discharge [COMM] Routine - Assessment/Plan Last 24 Hours: My Active Orders 04/09/20 20:28 Hand Comp Min 3V Rt [CR] Stat Head wo Cont [CT] Stat Ribs 2V wo Chest Lt [CR] Stat 04/09/20 22:08 DME for Discharge [COMM] Routine
[2020-04-09] MEDS ORDERED: Acetaminophen 325 MG Tab PO ONE (21:20)
[2020-04-09] MEDS ORDERED: Acetaminophen 325 MG Tab ONE (21:38)
--- NOTE | 2020-04-10 08:54 | CR ---
Left ribs: 3 views of the left ribs were obtained. Comparison: No prior rib exam is available. Probable hiatal hernia is present. Bony structures are osteopenic. Questionable deformity within the anterior left second, third, and fifth ribs. These are most likely due to old fractures. I do not see a definite acute fracture although nondisplaced fracture could easily be missed due to the osteopenia. Impression: 1. Findings suspicious for old healed fractures. 2. No definite acute abnormality is appreciated. Diagnostic code #2
--- NOTE | 2020-04-10 09:01 | CR ---
Right hand: 4 views of the right hand were obtained. Comparison: No prior right hand exam is available. Diffuse joint space narrowing is noted within portions of the MCP, DIP and PIP joints. Joint space narrowing is noted off the distal navicular bone. Moderate degenerative change is noted within the CMC joint of the thumb. Bony structures are slightly osteopenic. Slight chondrocalcinosis is noted within the triangular fibrocartilage. There is deformity seen within the base of the proximal phalanx of the fifth digit. I believe this is most likely due to an old fracture, but please correlate with the patient's symptoms. Impression: 1. Degenerative change as noted above which is worse within the DIP joints. 2. Slight deformity within the base of the proximal phalanx of the right fifth finger. As mentioned above, I believe that this is most likely old but please correlate with the patient's symptoms. Diagnostic code #3
--- NOTE | 2020-04-10 09:03 | CT ---
Head CT Technique: Multiple axial sections through the brain were obtained. Intravenous contrast was not utilized. Comparison: No prior intracranial imaging is available. Findings: Ventricles along with basal cisterns and sulci over convexities are mildly prominent. No abnormal parenchymal density is seen. No evidence of intracranial hemorrhage. No midline shift or mass-effect is appreciated. Bone window settings were reviewed. Minimal soft tissue swelling is noted within the left frontal scalp. No acute calvarial finding is appreciated. Visualized portions of the paranasal and mastoid sinuses are clear. Impression: 1. Findings as noted above. 2. No acute intracranial abnormality is appreciated. Diagnostic code #2 I agree with preliminary report from [facility], finalized on 04/09/20, 10:09 PM [email or web address]
== END 2020-04-09 22:29 | disposition home or self-care (01) ==
LOC: JD.ED 19:47
DX: S00.83XA Contusion of other part of head, initial encounter (principal); S60.221A Contusion of right hand, initial encounter; S20.212A Contusion of left front wall of thorax, initial encounter; E78.00 Pure hypercholesterolemia, unspecified; J45.909 Unspecified asthma, uncomplicated; N18.9 Chronic kidney disease, unspecified; M19.90 Unspecified osteoarthritis, unspecified site; E03.9 Hypothyroidism, unspecified; Z88.1 Allergy status to other antibiotic agents; Z88.5 Allergy status to narcotic agent; Z79.82 Long term (current) use of aspirin; Z79.899 Other long term (current) drug therapy; Z87.891 Personal history of nicotine dependence; W19.XXXA Unspecified fall, initial encounter
CPT/HCPCS: 70450; 71100; 73130; 99284; A9270

== ENCOUNTER 2021-03-10 18:30 | Emergency (ER) | payer MEDICARE, MEDICAID ==
--- NOTE | 2021-03-10 19:49 | EDM.PDOC ---
ED HPI GENERAL MEDICAL PROBLEM - General Chief Complaint: Respiratory Problem Stated Complaint: HEADACHE COUGH COVID+ Time Seen by Provider: 03/10/21 18:47 Source of Information: Reports: Patient History Limitations: Reports: No Limitations, Other (80 vital signs reveal a temp of 97.8, pulse of 97, respiratory rate of 18, blood pressure 161/86, pulse ox 97% on room air) - History of Present Illness INITIAL COMMENTS - FREE TEXT/NARRATIVE: 80-year-old female presents the emergency department today with complaints of Covid-like symptoms. Patient tested positive for Covid on 03/05/2021 and received the antibody infusion on that day. She states she is significantly better and only has a mild cough noted however still having fatigue and a mild headache. She states she followed up with her primary care provider, Darby Peralta and was started on prednisone a few days ago. She denies any worsening symptoms however she states that she she should be feeling better by now. Headache Pain Score (Numeric/FACES): 2 - Related Data Allergies Allergy/AdvReac Type Severity Reaction Status Date / Time baclofen Allergy Itching Verified 03/10/21 18:46 hydrocodone Allergy Itching Verified 03/10/21 18:46 Home Meds: Home Meds Albuterol [Ventolin HFA] 1 inh INH Q4HR PRN 01/12/19 [History] Aspirin 81 mg PO DAILY 01/12/19 [History] Escitalopram [Lexapro] 10 mg PO DAILY 01/31/19 [History] Ezetimibe 10 mg PO BEDTIME 01/31/19 [History] Fluticasone Propion/Salmeterol [Fluticasone-Salmeterol 100-50] 1 puff INH ASDIRECTED 01/31/19 [History] Furosemide 20 mg PO DAILY 01/31/19 [History] Levothyroxine 75 mcg PO ACBREAKFAST 01/31/19 [History] atorvaSTATin [Lipitor] 20 mg PO DAILY 01/31/19 [History] traZODone HCl [Trazodone HCl] 50 mg PO BEDTIME 01/31/19 [History] Ascorbic Acid [Vitamin C] 1 tab PO DAILY 06/12/19 [History] Calcium Carbonate [Calcium] 1 tab PO DAILY 06/12/19 [History] Cholecalciferol (Vitamin D3) [Vitamin D] 5,000 unit PO DAILY 06/12/19 [History] Fluticasone Propion/Salmeterol [Advair 250-50 Diskus] 2 puff INH DAILY 06/12/19 [History] traMADol [Ultram] 1 tab PO Q6H PRN #10 tab 08/26/19 [Rx] Past Medical History HEENT History: Reports: Impaired Vision Other HEENT History: wears glasses Cardiovascular History: Reports: High Cholesterol, Other (See Below) Other Cardiovascular History: superficial blood clots Respiratory History: Reports: Asthma Gastrointestinal History: Reports: GERD, Hiatal Hernia Genitourinary History: Reports: Chronic Renal Insuffiency Other Genitourinary History: 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: Musculoskeletal History: Reports: Osteoarthritis Neurological History: Reports: None Psychiatric History: Reports: Anxiety, Depression Endocrine/Metabolic History: Reports: Hypothyroidism Hematologic History: Reports: None Immunologic History: Reports: None Oncologic (Cancer) History: Reports: None Dermatologic History: Reports: None - Infectious Disease History Infectious Disease History: Reports: Novel Coronavirus - Past Surgical History Head Surgeries/Procedures: Reports: None HEENT Surgical History: Reports: Cataract Surgery, Tonsillectomy Cardiovascular Surgical History: Reports: Varicose, Vascular Surgery Musculoskeletal Surgical History: Reports: Knee Replacement, Shoulder Surgery Social & Family History - Family History Family Medical History: No Pertinent Family History - Tobacco Use Tobacco Use Status *Q: Never Tobacco User - Caffeine Use Caffeine Use: Reports: None - Living Situation & Occupation Living situation: Reports: , with Family (Daughter) Occupation: Retired ED ROS GENERAL - Review of Systems Review Of Systems: Comprehensive ROS is negative, except as noted in HPI. ED EXAM, GENERAL - Physical Exam Exam: See Below Exam Limited By: No Limitations General Appearance: Alert, WD/WN, No Apparent Distress Ears: Normal External Exam, Hearing Grossly Normal Nose: Normal Inspection Throat/Mouth: Normal Inspection, Normal Lips, Normal Voice, No Airway Compromise Head: Atraumatic Neck: Normal Inspection, Supple. No: Lymphadenopathy (L), Lymphadenopathy (R) Respiratory/Chest: No Respiratory Distress, Lungs Clear, Normal Breath Sounds, No Accessory Muscle Use, Chest Non-Tender Cardiovascular: Normal Peripheral Pulses, Regular Rate, Rhythm, No Edema, Systolic Murmur (Grade 2) GI/Abdominal: Normal Bowel Sounds, Soft, Non-Tender, No Distention (Female) Exam: Deferred Rectal (Female) Exam: Deferred Back Exam: Normal Inspection Extremities: Normal Inspection Neurological: Alert, Oriented, Normal Cognition Psychiatric: Normal Affect, Normal Mood Skin Exam: Warm, Dry, Intact, Normal Color, No Rash Lymphatic: No Adenopathy Course - Vital Signs Text/Narrative:: As stated above, patient presents with a diagnosis of Covid on 03/05/2021 and antibody infusion on that same date. She states that symptoms have lessened and she is feeling better however she believes that symptoms should have resolved by now. I did educate the patient that the antibody infusion is only been shown to decrease the severity and length of time you have symptoms and she states she is unaware of this. She thought that it was was to make the symptoms resolved. She denies decreased appetite. She states she has been eating small frequent meals. She states she is drinking fluids well and voiding per her norm. She states she is getting plenty rest. She states her cough is significantly better and it is minimal. She denies any shortness of breath or any other symptoms. Physical exam, is unremarkable. Lungs are clear heart rate is regular with a grade 2 systolic murmur noted. Abdomen is soft and nontender. At this time I did offer to do lab studies however she is declining and she will be allowed to be discharged home. I did remind her that she does need to continue quarantining for 10 days time from the onset of symptoms. Patient does verbalize understanding of this and is agreeable to this plan. Last Recorded V/S: Last Vital Signs Temp 97.8 F 03/10/21 18:43 Pulse 97 03/10/21 18:43 Resp 18 03/10/21 18:43 BP 161/86 H 03/10/21 18:43 Pulse Ox 97 03/10/21 18:43 Departure - Departure Time of Disposition: 19:48 Disposition: Home, Self-Care 01 Condition: Good Clinical Impression: COVID-19 - Discharge Information Instructions: 10 Things You Can Do to Manage Your COVID-19 Symptoms at Home - [facility] (09/21/2020), COVID-19: Quarantine vs. Isolation - [facility] (02/23/2020) Referrals: Izzy Hein MD [Primary Care Provider] - Additional Instructions: You were seen in the emergency department today with complaints of Covid symptoms not resolving. As discussed, antibody treatment has only been shown to decrease the severity and length of time you have the symptoms. You state that symptoms are getting better however not completely resolved. As discussed this may take a few weeks for you to feel completely normal again. On exam, you do not appear to be ill. Your lungs are nice and clear as well as your heart rate is nice and regular. I cannot find any irregularities on your physical exam. Your oxygen level is well within normal limits as well as your heart rate. You state you are taking fluids well and eating small frequent meals and avoiding per your norm. Recommend that you continue to go home and get plenty of rest and drink plenty of fluids. Should you develop symptoms such as severe shortness of breath or chest discomfort do not hesitate returning to the emergency department. Sepsis Event Note (ED) - Evaluation Sepsis Screening Result: No Definite Risk - Focused Exam Vital Signs: Vital Signs Temp Pulse Resp BP Pulse Ox 03/10/21 18:43 97.8 F 97 18 161/86 H 97
== END 2021-03-10 20:03 | disposition home or self-care (01) ==
LOC: JD.ED 18:30
DX: U07.1 COVID-19 (principal); E78.00 Pure hypercholesterolemia, unspecified; E03.9 Hypothyroidism, unspecified; Z88.8 Allergy status to other drugs, medicaments and biological substances; Z88.5 Allergy status to narcotic agent; Z79.899 Other long term (current) drug therapy; Z79.82 Long term (current) use of aspirin
CPT/HCPCS: 99283

== ENCOUNTER 2021-05-11 19:44 | Emergency (ER) | payer MEDICARE, MEDICAID ==
[2021-05-11] MEDS ORDERED: oxyCODONE 5 MG Tab PO ONE (20:12)
== END 2021-05-11 22:05 | disposition home or self-care (01) ==
LOC: JD.ED 19:44
DX: M25.552 Pain in left hip (principal); M25.512 Pain in left shoulder; J45.909 Unspecified asthma, uncomplicated; K21.9 Gastro-esophageal reflux disease without esophagitis; N18.9 Chronic kidney disease, unspecified; E03.9 Hypothyroidism, unspecified; Z88.5 Allergy status to narcotic agent; Z79.82 Long term (current) use of aspirin; Z79.899 Other long term (current) drug therapy
CPT/HCPCS: 73030; 73502; 99283; A9270; 29240

== ENCOUNTER 2022-10-11 18:07 | Emergency (ER) | payer MEDICARE | END 2022-10-11 19:31 | disposition home or self-care (01) | LOC: JD.ED 18:07 | DX: L08.9 Local infection of the skin and subcutaneous tissue, unspecified (principal); E78.00 Pure hypercholesterolemia, unspecified; J45.909 Unspecified asthma, uncomplicated; E03.9 Hypothyroidism, unspecified; M19.90 Unspecified osteoarthritis, unspecified site; Z79.899 Other long term (current) drug therapy; Z86.16 Personal history of COVID-19; Z79.82 Long term (current) use of aspirin; Z88.5 Allergy status to narcotic agent; Z88.8 Allergy status to other drugs, medicaments and biological substances | CPT/HCPCS: 99282; 99283 ==

== ENCOUNTER 2022-10-12 14:26 | Emergency (ER) | payer MEDICARE ==
[2022-10-12 15:42] LABS: A/G RATIO 0.8 (1-2); ALANINE AMINOTRANSFERASE,ALT 12 U/L (14-59); ALBUMIN 2.8 g/dl (3.4-5.0); ALKALINE PHOSPHATASE 119 U/L (46-116); ANION GAP 10.3 (5-15); ASPARTATE AMNIOTRANSFERASE,AST 12 U/L (15-37); BILIRUBIN TOTAL 0.5 mg/dL (0.2-1.0); BLOOD UREA NITROGEN,BUN 23 mg/dL (7-18); BUN/CREATININE RATIO 15.3 (14-18); CALCIUM 8.6 mg/dL (8.5-10.1); CARBON DIOXIDE,CO2 28 mEq/L (21-32); CHLORIDE,CL 106 mEq/L (98-107); CREATININE 1.5 mg/dL (0.55-1.02); ESTIMATED GFR 35 mL/min (>60); GLUCOSE RANDOM 138 mg/dL (70-99); POTASSIUM,K 4.3 mEq/L (3.5-5.1); PROTEIN TOTAL,TP 6.2 g/dl (6.4-8.2); SODIUM,NA 140 mEq/L (136-145)
== END 2022-10-12 16:17 | disposition home or self-care (01) ==
LOC: JD.ED 14:26
DX: H65.93 Unspecified nonsuppurative otitis media, bilateral (principal); E78.00 Pure hypercholesterolemia, unspecified; K21.9 Gastro-esophageal reflux disease without esophagitis; E03.9 Hypothyroidism, unspecified; N18.9 Chronic kidney disease, unspecified; Z86.16 Personal history of COVID-19; Z88.1 Allergy status to other antibiotic agents; Z88.5 Allergy status to narcotic agent
CPT/HCPCS: 36415; 80053; 99283

== ENCOUNTER 2022-10-19 15:11 | Emergency (ER) | payer MEDICARE | END 2022-10-19 17:31 | disposition home or self-care (01) | LOC: JD.ED 15:11 | DX: S31.829A Unspecified open wound of left buttock, initial encounter (principal); E78.00 Pure hypercholesterolemia, unspecified; J45.909 Unspecified asthma, uncomplicated; N18.9 Chronic kidney disease, unspecified; M19.90 Unspecified osteoarthritis, unspecified site; E03.9 Hypothyroidism, unspecified; Z86.16 Personal history of COVID-19; Z88.5 Allergy status to narcotic agent; Z88.6 Allergy status to analgesic agent; Z79.82 Long term (current) use of aspirin; Z79.899 Other long term (current) drug therapy | CPT/HCPCS: 99283 ==

== ENCOUNTER 2023-11-22 10:05 | Emergency (ER) | payer MEDICARE, MEDICAID | END 2023-11-22 11:46 | disposition home or self-care (01) | LOC: JD.ED 10:05 | DX: R22.2 Localized swelling, mass and lump, trunk (principal); I12.9 Hypertensive chronic kidney disease with stage 1 through stage 4 chronic kidney disease, or unspecified chronic kidney disease; N18.9 Chronic kidney disease, unspecified; I25.2 Old myocardial infarction; E03.9 Hypothyroidism, unspecified; Z86.16 Personal history of COVID-19; Z79.899 Other long term (current) drug therapy; Z79.890 Hormone replacement therapy; Z79.52 Long term (current) use of systemic steroids; Z79.82 Long term (current) use of aspirin; Z88.5 Allergy status to narcotic agent; Z88.8 Allergy status to other drugs, medicaments and biological substances | CPT/HCPCS: 99283 ==